=== PATIENT | male | born 1955 | race Caucasian/White ===

== ENCOUNTER 2017-11-20 11:16 | Outpatient (CLI) | payer OTHER ==
--- NOTE | 2017-11-20 12:10 | RAD ---
LUMBAR SPINE 3 VIEWS: Date: 11/20/17 HISTORY: Low back pain. FINDINGS: No comparison. There are six lumbar-type vertebra, so great care must be taken when assigning numbering on cross-sec tional imaging. For the purposes of this exam, the superiormost lumbar-type vertebra will be designat ed as T12. Pedicles are intact. There is mild left convex rotatory scoliotic curvature. Compression of the T12 v ertebral body results in loss of height anteriorly by approximately 40%. There is gas within the ante rior aspect of the compressed vertebral body and very subtle sclerotic change. Mild retropulsion. Mild compression of the L2 superior end plate, at approximately 10%, appears chronic. There is osteop hytosis throughout the vertebral bodies and facets. IMPRESSION: 1. Prominent compression of T12 vertebral body with mild retropulsion. Favored to be acute. Please c onsider MRI for better characterization and evaluation of the central spinal canal. 2. Mild compression L2 superior end plate, favored to be chronic. POS: [facility]
== END 2017-11-20 11:17 | disposition home or self-care (01) ==
LOC: RAD-FRANK 11:16
PROVIDERS: ATTEND Nurse Practitioner Family
DX: M54.5 Low back pain (principal); G95.20 Unspecified cord compression
CPT/HCPCS: 72100

== ENCOUNTER 2017-12-10 07:59 | Outpatient (CLI) | payer OTHER ==
--- NOTE | 2017-12-10 08:24 | RAD ---
SUPINE ABDOMEN: History: Abdominal pain. FINDINGS: Bowel gas pattern unremarkable. Scattered stool and gas in the colon. Unremarkable small bowel gas. N o mass effect or abnormal calcification. Psoas margins are sharp. Osseous structures unremarkable. IMPRESSION: Unremarkable exam. POS: [facility]
== END 2017-12-10 08:00 | disposition home or self-care (01) ==
LOC: RAD-FRANK 07:59
PROVIDERS: ATTEND Nurse Practitioner Family
DX: K52.9 Noninfective gastroenteritis and colitis, unspecified (principal)
CPT/HCPCS: 74018

== ENCOUNTER 2018-11-01 11:04 | Inpatient (IN) | payer BC, OTHER ==
[2018-11-01 12:17] LABS: Hemoglobin 15.1 g/dL (14.0-18.0); Mean Corpuscular HGB CONC 35.3 g/dL (32.0-36.0); Mean Corpuscular Hemoglobin 30.5 pg (27.0-31.0); Mean Corpuscular Volume 86.3 fL (78.0-98.0); Platelet Count 150 thou/uL (130-400); RBC Distribution Width 12.1 % (11.5-14.5); Red Blood Cell (RBC) Count 4.94 mill/uL (4.70-6.10)
[2018-11-01 12:26] LABS: #Eosinphils 0.2 thou/uL (0.0-0.7); #Lymphocytes 0.6 thou/uL (1.20-3.40); #Monocytes 0.8 thou/uL (0.11-0.59); #Neutrophils 16.3 thou/uL (1.40-6.50); %Eosinophils 0.9 % (0.0-10.0); %Lymphocytes 3.5 % (21.0-51.0); %Monocytes 4.4 % (0.0-10.0); %Neutrophils 91.1 % (42.0-75.0); Band 16 % (5-11); Lymphocytes 3 % (21-51); MDiff Complete? YES; Monocytes 2 % (0-10); Neutrophil 78 % (42-75); Platelet Morphology Comment Appears Adequate; RBC Morphology Normal; Reactive Lymphocytes 1 % (0-10); White Blood Cell (WBC) Count 17.8 thou/uL (4.8-10.8)
[2018-11-01 12:27] LABS: ALT (SGPT) 24 U/L (8-55); AST (SGOT) 28 U/L (5-34); Albumin 4.2 g/dL (3.4-4.8); Alkaline Phosphatase 72 U/L (40-150); Anion Gap 19 mmol/L (10-20); BUN (Urea Nitrogen) 18 mg/dL (8.4-25.7); Calc. Creatinine Clearance 0 mL/min (70-130); Calcium 9.7 mg/dL (7.8-10.44); Carbon Dioxide 17 mmol/L (23-31); Chloride 108 mmol/L (98-107); Estimated GFR-MDRD 47; Globulin 2.4 g/dL (2.4-3.5); Glucose 139 mg/dL (80-115); Potassium 4.3 mmol/L (3.5-5.1); Protein, Total 6.6 g/dL (5.8-8.1); Sodium 140 mmol/L (136-145)
--- NOTE | 2018-11-01 13:36 | RAD ---
RIGHT ELBOW 4 VIEWS: DATE: 11/01/2018. COMPARISON: None. HISTORY: Fall, injury, trauma, pain. FINDINGS: Lateral examination demonstrates no elbow joint effusion. There is no displaced fracture or evidence of dislocation seen. IMPRESSION: No acute findings. POS: [facility]
--- NOTE | 2018-11-01 14:04 | CT ---
HEAD CT WITHOUT CONTRAST: HISTORY: Dementia. Fall. Posttraumatic pain. COMPARISON: 11/20/2012. FINDINGS: No parenchymal hemorrhage. No extraaxial hematoma. No midline shift. Basilar cisterns are patent. Age-appropriate atrophy. Cortical meek-white matter differentiation is preserved. Stable configuration of the ventricular system. Calvarium is intact. Adequate aeration of the sinuses and mastoid air cells. IMPRESSION: No intracranial posttraumatic sequelae. POS: [facility]
[2018-11-01 14:27] LABS: Bilirubin Small (Negative); Blood, Urine Negative (Negative); Clarity TURBID (Clear); Glucose, Urine (Dipstick) Negative (Negative); Leukocyte Negative (Negative); Nitrite Negative (Negative); Protein, Urine (Dipstick) 30 mg/dL (Neg-Trace); Specific Gravity, Urine 1.026 (1.002-1.036); pH, Urine 5.5 (5.0-9.0)
[2018-11-01 14:29] LABS: Bacteria/HPF None Seen HPF (None Seen); RBC/HPF 0-3 HPF (0-3); Squamous Epithelial 0-3 HPF (0-3); WBC/HPF 0-3 HPF (0-3)
[2018-11-01 14:30] LABS: Pathc Cast-AUWi Flag 2.61 (0-2.49)
--- NOTE | 2018-11-01 14:36 | CT ---
CERVICAL SPINE CT WITHOUT CONTRAST: DATE: 11/01/2018. HISTORY: Fall, trauma, pain. TECHNIQUE: Axial CT imaging at 2.5 mm intervals from the skull base through the lung apices with coronal and sag ittal reformatted imaging. FINDINGS: Imaged paranasal sinuses/mastoid air cells well aerated. Imaged lung apices unremarkable. There is moderate degenerative change of the atlantoaxial interspace. There is no anterolisthesis or retrolisthesis noted within the cervical spine. The craniocervical junction, the atlantoaxial inter space, and the cervicothoracic junction appears intact. There is no anterolisthesis or retrolisthesi s noted within the cervical spine. No prevertebral soft tissue swelling. There is mild anterior wedging of T1 with mild loss of vertebral body height anteriorly primarily aff ecting the superior end plate of the T1 vertebral body. The bones are demineralized, which limits detailed assessment for nondisplaced fracture. The occipital condyles, dens, and C1-2 articulation demonstrate no acute findings. No acute cervical spine fracture or evidence of dislocation is seen within the cervical spine. IMPRESSION: Mild anterior wedging of T1 vertebral body with irregularity of superior end plate suggesting age-ind eterminate anterior wedge compression fracture, better assessed on thoracic spine CT examination. POS: [facility]
[2018-11-01 14:43] LABS: Crystals/HPF 4+ AMORPH URATES HPF (Negative); Hyaline Casts/LPF 0-3 HYALINE CAST LPF (0-3 Hyaline); Other Casts/LPF None Seen LPF (0-3 Hyaline)
--- NOTE | 2018-11-01 14:43 | CT ---
THORACIC SPINE CT WITHOUT CONTRAST: HISTORY: Dementia. Fall. Posttraumatic pain. COMPARISON: None. TECHNIQUE: A CT of the thoracic spine is performed without contrast administration. Reformatted images are subm itted for interpretation. FINDINGS: There appears to be mild loss of vertebral body height along the superior end plate of T1, T2, and T3 . Axial images do suggest possible slight cortical irregularity on the anterior aspect of T1 and T2. Irregularities may also be present at T3, though is less evident. No paraspinal hematoma. Correla te clinically. If there is concern, MRI can be performed. There is diffuse bone demineralization. End plate irregularity due to Schmorl's nodes are noted. Calcification of the T7-T8 and T8-T9 disk i s noted. There is mild loss of vertebral body height in the mid portion of T10 which is felt to repr esent a remote Schmorl's node. A similar finding is noted at T11. There is vertebro plana at L1. Visualized mediastinal structures are unremarkable. Dependent atelectatic changes in the lung parenc hyma. Trachea and central bronchi are patent. Calcified bilateral hilar lymph nodes. Visualized solid organs are grossly unremarkable. Gallbladder is surgically absent. Central spinal canal is patent. Neural foramina appear to be patent. IMPRESSION: 1. Indeterminate mild compression deformities at T1, T2, and T3. Correlate clinically. If there is point tenderness, consider thoracic spine MRI. 2. Likely chronic end plate irregularities along the superior end plate of T10 and T11. 3. Vertebro plana at L1. POS: [facility]
--- NOTE | 2018-11-01 14:57 | CT ---
CT LUMBAR SPINE WITHUOT CONTRAST: HISTORY: Fall. Pain. COMPARISON: None. FINDINGS: Diffuse bone demineralization. Six lumbar-type vertebral bodies. Six lumbar-type vertebral bodies. Vertebroplana at L1. L2 through L5 have preservation of vertebral body height. There is irregulari ty involving the superior end plate of L6 with mild loss of vertebral body height. Fracture lucency does extend into the superior aspect of the vertebral body. There is no significant paraspinal hemat juan at this time. Symmetric attenuation of the psoas muscles. No retroperitoneal mass, lymphadenopa thy, or hematoma. Incompletely evaluated nodule involving the left adrenal gland measuring 1.3 cm wi th an attenuation coefficient of 11 Hounsfield units. No evidence of obstructive uropathy. Isodensi ties emanating from the left kidney, incompletely evaluated. Visualized sacrum and bony pelvis appear to be intact. Obvious sacral fax is not appreciated. Limited evaluation of the contents of the central spinal canal and neural foramina. No high-grade ce ntral canal stenosis. No high-grade neural foraminal narrowing. IMPRESSION: 1. Vertebroplana at L1 with an associated chronic fracture. 2. Acute mild compression fracture involving the L6 vertebral body. POS: [facility]
[2018-11-01] MEDS ORDERED: Lidocaine 1% w/Epinephrine 1:100K 20 ML VIAL ONE (15:32)
[2018-11-01] MEDS ORDERED: Azithromycin 500 MG VIAL ONE (15:47)
[2018-11-01] MEDS ORDERED: Sodium Chloride 0.9% 100 ML ONE (15:47)
[2018-11-01] MEDS ORDERED: cefTRIAXone\\ROCEPHIN 2 GM VIAL ONE (15:47)
[2018-11-01] MEDS ORDERED: Triple Antibiotic Oint 1 GM Packet ONE (16:03)
--- NOTE | 2018-11-01 16:46 | RAD ---
CHEST ONE VIEW: 11/01/18 HISTORY: Altered mental status. COMPARISON: None. FINDINGS: Multiple calcified lymph nodes project over the left and right hilum as well as the mediastinum. Norm al cardiac silhouette. Lung volumes are diminished likely due to poor inspiratory effort. Subsequent crowding of the interstitium and pulmonary vessels. No pleural effusions or pneumothorax. IMPRESSION: Diminished lung volumes due to poor inspiratory effort. Resultant interstitial and pulmonary vascular prominence. Better interrogation with two view chest radiograph would be beneficial. POS: [facility]
[2018-11-01] MEDS ORDERED: Ondansetron PF 4 MG/2 ML Vial IVP PRN (18:02)
[2018-11-01] MEDS ORDERED: Acetaminophen 500 MG TAB ONE (18:12)
[2018-11-01 18:31] LABS: Lactic Acid 3.1 mmol/L (0.5-2.2)
--- NOTE | 2018-11-01 19:28 | HP ---
PRIMARY CARE PROVIDER: UDAY Castaneda at [facility] in [place]. CHIEF COMPLAINT: Fall. HISTORY OF PRESENT ILLNESS: This is a 63-year-old male with history of moderate frontal lobe dementia, hypertension, and hypothyroidism, who presents to the emergency room by EMS after a fall this morning. All history was obtained from the patient's . She reports that he was finished in the bathroom, coming out, followed by a fall that was not witnessed. She denies any precipitants for this , noted that he was stiff after the fall, and it took approximately 30 to 40 minutes for him to come to. She denies any loss of consciousness; however, states that he was confused and different than his baseline. She also reports one episode of vomiting after the fall. She has noted that over the past week that he has been acting differently, talking to the TV, and becoming agitated, his appetite has been lower than usual and over the past 2 months, he has been more agitated easily. She has not noticed any fevers, chills, nausea, diarrhea, change in his breathing, coughing, or medication change. The patient has a history of fall a year ago, hospitalized at [facility] where he was diagnosed with and treated for colitis. He has a history of compression fracture associated with that fall. She denies any other recent falls. In the emergency room, the patient found to meet sepsis criteria, with a pneumonia, and he was given 2 L of normal saline, 500 mg of azithromycin IV, ceftriaxone 2 g IV, and laceration repair of his right elbow, and hospitalist called for admission. ALLERGIES: NO KNOWN DRUG ALLERGIES. MEDICATIONS: Current medications are reconciled with the bottles as well as a list from his . 1. Quetiapine 50 mg at bedtime. 2. Potassium chloride 20 mEq daily. 3. Multivitamin daily. 4. Coenzyme Q10, 100 mg daily. 5. Amlodipine 10 mg daily. 6. Hydrochlorothiazide 25 mg one-half tablet daily. 7. Synthroid 50 mcg daily. 8. Aspirin 81 mg daily. 9. Losartan 100 mg daily. 10. Memantine 10 mg b.i.d. 11. Donepezil 10 mg b.i.d. PAST MEDICAL HISTORY: 1. Hypothyroidism. 2. Moderate frontal lobe dementia followed by Dr. Brown in [place]. 3. Hypertension. PAST SURGICAL HISTORY: Cholecystectomy. SOCIAL HISTORY: The patient is . His is his medical power of bagman/woman. Her name is Julieta Carrasquillo, phone #[phone], and she confirms he is a full code. There is no alcohol or tobacco use. FAMILY HISTORY: Significant for 4 brothers who had heart disease and 3 sisters who had cancer. The patient is 1 of 10 children. REVIEW OF SYSTEMS: Not obtainable from the patient and per the as above. She does note one episode of vomiting after the fall, none since then. All remaining review of systems per her are negative. PHYSICAL EXAMINATION: VITAL SIGNS: Blood pressure 112/84, pulse 84, respirations 18, saturation is 95 % on room air, and temperature 99. GENERAL: The patient is awake, easily agitated, no spontaneous speech, will answer some simple questions without difficulty. HEENT: His right tympanic membrane is translucent. His left external auditory canal was occluded with cerumen, and the tympanic membrane not visualized. Oral mucosa is pink and moist. The patient does have some bruising at the tip of his tongue. NECK: Supple. LYMPHATICS: No palpable anterior cervical or supraclavicular lymphadenopathy. LUNGS: Clear to auscultation bilateral. No audible wheezing, rhonchi, or rales. HEART: Normal S1, S2. Regular rate and rhythm. No audible murmurs. ABDOMEN: Soft with present bowel sounds. EXTREMITIES: No clubbing, cyanosis, or edema. NEUROLOGIC: Unable to adequately perform as the patient not following with exam. Occasional shaking of his right hand. SKIN: No visible rashes. VASCULAR: 2+ dorsalis pedis pulses. PSYCH: The patient intermittently agitated versus just lying quietly and alert , not oriented to place, time, or situation. LABORATORY DATA: Labs personally reviewed. CBC; 17.8, 15.1, 42.6, 150 with 91% neutrophils, 3% lymphocytes. Renal panel; 140, 4.3, 108, 17, 18, 1.49, and 139. Lactic acid 4.3. LFTs are normal. No comparison available for creatinine as no results in our system. Urinalysis; 1.026, present protein, ketones, and small bilirubin. Flu swab is negative. DIAGNOSTIC DATA: Chest x-ray is personally reviewed and shows diminished lung volumes due to poor inspiratory effort, resulting in interstitial and pulmonary vascular prominence with recommendation for 2-view x-ray. Elbow x-ray, no acute findings. C-spine x-ray, mild anterior wedging of the T1 vertebral body with irregularity of superior endplates suggesting age-indeterminate anterior wedge compression fracture. Head CT, no acute intracranial process. Lumbar spine CT vertebra plana at L1 with associated chronic fracture, acute mild compression fracture of the L6 vertebral body. Thoracic spine CT, indeterminate mild compression deformity at T1, T2, T3, likely chronic endplate irregularities along the superior endplate of T10, T11, and vertebra plana at L1. ECG - sinus rhythm with rate 90, normal ME and QRS intervals, QTc is 457, no ST changes. IMPRESSION: 1. Sepsis, possibly due to pneumonia. 2. Compression fractures, both acute and chronic. 3. Fall with concern for seizure given history. 4. Possible acute kidney injury, unknown baseline of the patient's renal function. This is in the context of fall and the patient taking an ARB and diuretic. 5. Moderate frontal lobe dementia. 6. Hypothyroidism, unknown control. 7. Hypertension, however, currently normotensive. 8. Prolonged QT interval. PLAN: 1. Admission to the hospital. 2. Continuing his antibiotics with Rocephin and azithromycin, monitoring his blood and urine cultures. Consider repeat chest x-ray as the patient is able to cooperate, recheck the lactate level. 3. IV fluid hydration. Monitoring renal function. If renal function is worsening, we will need to consider a renal ultrasound and possibly Nephrology consult. 4. Telemetry monitoring. We will check an EEG and request Neurology consultation for possible seizure. Hold on medications for this for now. Will order prn ativan, and seizure precautions. 5. Continuing his home medications for dementia. 6. Check a TSH and continue his current dose of Synthroid. 7. Hold his blood pressure medications, as his blood pressures become elevated, and if his renal function will allow for those that may affect for the hydrochlorothiazide and losartan. 8. We will continue his daily aspirin, hold his supplements. 9. Continue the TLSO brace and physical therapy. 10. Manage pain for now with Tylenol, may need to use stronger medications. Hold on anti-inflammatories due to his renal function. 11. Avoid any other medications that can prolong the QT interval, and follow here with daily ecg. 11. DVT prophylaxis with pneumatic compression devices. 12. GI prophylaxis, not indicated. The patient will be written for a diet. 13. Code status is full. Surrogate decision maker is his . 14. The patient is at high risk given age, comorbidities, and current presentation. 15. Reviewed the plan of care with the patient's and his son. No questions or further needs at end of evaluation. Job ID: [id number] [facility]
[2018-11-01] MEDS: Sodium Chloride 0.9% 1,000 ML IV SCH (19:58)
[2018-11-01] MEDS ORDERED: Clopidogrel Bisulfate 75 MG TAB ONE (20:09)
[2018-11-01] MEDS ORDERED: Lorazepam 2 MG/ML VIAL SLOW IVP PRN (20:48)
[2018-11-01] MEDS: Donepezil HCl 10 MG TAB PO SCH (20:53)
[2018-11-02] MEDS: Levothyroxine Sodium 50 MCG TAB PO SCH (05:40)
[2018-11-02] MEDS: Sodium Chloride 0.9% 1,000 ML IV SCH ×2 (05:44→15:45)
[2018-11-02 07:18] LABS: Anion Gap 14 mmol/L (10-20); BUN (Urea Nitrogen) 14 mg/dL (8.4-25.7); Calc. Creatinine Clearance 75 mL/min (70-130); Calcium 8.6 mg/dL (7.8-10.44); Carbon Dioxide 19 mmol/L (23-31); Chloride 111 mmol/L (98-107); Estimated GFR-MDRD 54; Glucose 107 mg/dL (80-115); Potassium 3.8 mmol/L (3.5-5.1); Sodium 140 mmol/L (136-145)
[2018-11-02] MEDS: Donepezil HCl 10 MG TAB PO SCH ×2 (09:01→20:26)
[2018-11-02] MEDS: Aspirin 81 mg Enteric Coated Tablet PO SCH (09:01)
[2018-11-02 09:43] LABS: #Lymphocytes 0.4 thou/uL (1.20-3.40); #Monocytes 0.2 thou/uL (0.11-0.59); #Neutrophils 6.8 thou/uL (1.40-6.50); %Eosinophils 0.6 % (0.0-10.0); %Lymphocytes 5.2 % (21.0-51.0); %Monocytes 2.8 % (0.0-10.0); %Neutrophils 91.5 % (42.0-75.0); Hemoglobin 13.3 g/dL (14.0-18.0); Mean Corpuscular HGB CONC 34.5 g/dL (32.0-36.0); Mean Corpuscular Hemoglobin 30.5 pg (27.0-31.0); Mean Corpuscular Volume 88.5 fL (78.0-98.0); Mean Platelet Volume 7.1 fL (7.4-10.4); Platelet Count 127 thou/uL (130-400); RBC Distribution Width 11.9 % (11.5-14.5); Red Blood Cell (RBC) Count 4.36 mill/uL (4.70-6.10); White Blood Cell (WBC) Count 7.4 thou/uL (4.8-10.8)
[2018-11-02] MEDS: Acetaminophen 500 MG TAB PO PRN ×2 (12:07→20:26)
--- NOTE | 2018-11-02 14:11 | CON ---
DATE OF TELEMEDICINE CONSULTATION: 11/02/2018 CHIEF COMPLAINT: Seizure. HISTORY OF PRESENT ILLNESS: The patient's family was in the room and daughter and son gave the medical history plus another relative. The patient's was out of the room and I gave them my phone number, so can call me. The patient apparently was with his in getting dressed when he fell and hurt his back. He was awake through the episode, but had jerky movements of both arms and legs. He had another seizure like event a year ago in November when he had colitis. At baseline, he has frontotemporal dementia and he has seen Dr. Brown in [place]. There is no loss of consciousness or weakness associated with this event. He did not have anymore events between last November and this time. He is currently admitted with possible seizure and urinary infection. PREVIOUS MEDICAL HISTORY: The patient has dementia, hypertension, and thyroid dysfunction and has a neurologist followup. He also has previous history of colitis. Previous medical history as stated, positive for hypothyroidism, moderate frontal lobe dementia, hypertension. PREVIOUS SURGICAL HISTORY: Cholecystectomy. ALLERGIES: NO KNOWN DRUG ALLERGIES. CURRENT MEDICATIONS: He takes: 1. Quetiapine. 2. Potassium chloride. 3. Multivitamin. 4. Coenzyme Q10. 5. Amlodipine. 6. Hydrochlorothiazide. 7. Synthroid. 8. Aspirin. 9. Losartan. 10. Memantine. 11. Donepezil. 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 No alcohol or tobacco use. FAMILY HISTORY: Positive for dementia in his father. REVIEW OF SYSTEMS: Unable to obtain from patient due to his mental status. LABORATORY WORKUP: His white count 7.4, hemoglobin 13.3, hematocrit 38.6, platelet count 127. Sodium 140, potassium 3.8, chloride 111, bicarb 19, BUN 14, creatinine 1.33. Lactic acid 3.1. TSH 1.15. Urinalysis is abnormal with high protein, trace ketones, small bilirubin, and amorphous urate and hyaline casts. Negative leukocyte esterase. He also had a CT scan which showed no evidence of hemorrhage. He does have chronic meek white matter changes. PHYSICAL EXAMINATION: VITAL SIGNS: His blood pressure was 144/72, temperature 99.7, pulse 83, respiratory rate 16. GENERAL APPEARANCE: Well-built, well-nourished man, who is in bed, seems to be quite demented, unable to follow commands. His speech is garbled. CHEST: Coarse breath sounds and decreased breath sounds at bases. He seems to be coughing, likely secondary to sinus drainage. ABDOMEN: Soft. CARDIOVASCULAR: S1, S2 heard. No murmurs. NEUROLOGIC: Higher intellectual function. He tries to obey some commands, but unable to interact meaningfully. His cranial nerve examination, no facial asymmetry. Normal extraocular movements. Pupils are reactive at 2 mm bilaterally. Tongue midline. No atrophy noted. Normal elevation of palate. Extraocular movements are intact. Motor exam, bulk normal. Based on gross motor evaluation , he seems to have strength of 5/5 on the left side and 4/5 on the right side. Cerebellar and sensory; difficult to evaluate due to his mental status. IMPRESSION: The patient is a 63-year-old man with a pre-existing dementia. He seems to have urinary infection. At this time, he is admitted with possible episode of seizure or seizure-like event with a tonic-clonic jerking of extremities with mild alteration of mental status, but no loss of consciousness or incontinence. At this time, his spell seems to be altered, although he is trying to obey commands. He seems to have mild right-sided weakness compared to the left side. I suspect he might have had an underlying new acute stroke in addition to his possible seizures. He is likely prone to seizures due to presence of dementia. RECOMMENDATIONS: I requested an MRI of the brain. I gave my phone number to the family, so can contact me at her leisure. I will also add Keppra to his medications to prevent any future seizures. He can follow up with his neurologist once he is discharged. ADDENDUM: I spoke to his who called me later. She updated medical history for me and I explained the plan of treatment to her. She verbalized understanding, and will contact me if she has any further questions. Job ID: [id number] [facility]
--- NOTE | 2018-11-02 15:19 | PDOC.PN ---
- Subjective Encounter Start Date: 11/02/18 Encounter Start Time: 14:55 Subjective: f/u for AMS, ?seizure-like activity and PNA. Still confused but more -: alert and responsive per 's report. Receiving IV abx and Keppra. - Objective Resuscitation Status - Order Detail: 11/01/18 18:02 Resuscitation Status Routine Resuscitation Status: FULL: Full Resuscitation Discussed with: patient's - medical decision maker MAR Reviewed: Yes Vital Signs & Weight: Vital Signs (12 hours) Temp Pulse Resp BP Pulse Ox 11/02/18 12:50 100.3 F H 80 21 H 136/88 100 11/02/18 09:09 99.7 F H 83 16 144/72 H 99 11/02/18 08:00 99 11/02/18 03:55 98.3 F 84 16 137/69 95 Weight Weight 208 lb I&O: 11/01/18 11/02/18 11/03/18 06:59 06:59 06:59 Intake Total 1140 Balance 1140 Result Diagrams: 11/02/18 09:22 11/02/18 06:22 Additional Labs: Microbiology 11/01/18 15:10 Nasopharyngeal swab Influenza Types A,B Direct EIA - Final 11/01/18 15:47 Venous blood - Left Hand Blood Culture - Preliminary Coagulase Neg Staphylococcus 11/01/18 15:41 Venous blood - Right Hand Blood Culture - Preliminary Specimen has been received and culture in progress. No Growth to date. 11/01/18 14:10 Urine Straight Catheter Urine Culture - Preliminary NO GROWTH AT 12 HOURS Laboratory Tests 11/01/18 11/01/18 11/01/18 11:33 11:33 15:47 WBC 17.8 H Creatinine 1.49 H Lactic Acid 4.3 H* TSH 3rd Generation 11/01/18 11/02/18 17:33 06:22 WBC Creatinine Lactic Acid 3.1 H TSH 3rd Generation 1.1511 Radiology Reviewed by me: Yes (MRI brain - no acute process) EKG Reviewed by me: Yes (Tele - SR in 80's) Phys Exam - Physical Examination alert, responds to questions, mumbled words/speech HEENT: PERRLA, sclera anicteric, oral pharynx no lesions Neck: no nodes, no JVD, supple, full ROM Respiratory: no wheezing, no rales, no rhonchi, clear to auscultation bilateral S1, S2 Cardiovascular: RRR, no significant murmur, no rub, gallop Gastrointestinal: soft, non-tender, no distention, positive bowel sounds Musculoskeletal: no edema, pulses present intermittent resting tremor Neurological: normal sensation, moves all 4 limbs Skin: normal turgor, cap refill <2 seconds Dx/Plan (1) Seizure Code(s): R56.9 - UNSPECIFIED CONVULSIONS Status: Acute Comment: Suspected given hx and clinical presentation, initiating Keppra, Neurology assistance appreciated, ? outpt EEG (2) Acute metabolic encephalopathy Code(s): G93.41 - METABOLIC ENCEPHALOPATHY Status: Acute Comment: Multifactorial including PNA, dehydration and ? seizure, supportive mgmt (3) Pneumonia, bacterial Code(s): J15.9 - UNSPECIFIED BACTERIAL PNEUMONIA Status: Acute Comment: Suspected, continue Zithromax/Rocephin, pulmonary supportive measures (4) KEVIN (acute kidney injury) Code(s): N17.9 - ACUTE KIDNEY FAILURE, UNSPECIFIED Status: Acute Comment: Improved, continue IVF's, avoid nephrotoxic meds and limit contrast exposure (5) Lactic acidosis Code(s): E87.2 - ACIDOSIS Status: Acute (6) Dementia Code(s): F03.90 - UNSPECIFIED DEMENTIA WITHOUT BEHAVIORAL DISTURBANCE Status: Chronic Comment: ? type, continue supportive care, resume Namenda/Aricept - Plan plan discussed w/ family, continue antibiotics, PT/OT, building services supervisor, respiratory therapy, DVT proph w/SCDs Stable currently -: Continue Zithromax/Rocephin another 24h -: Continue IVF's -: Resume Namenda/Aricept -: PT evaluation for functional assessment * AM lab: BMP, CBC
[2018-11-02] MEDS: cefTRIAXone\\ROCEPHIN 1 GM in Sodium Chloride 0.9% 100 ML IVPB SCH (15:45)
--- NOTE | 2018-11-02 16:02 | MRI ---
MRI BRAIN WITHOUT CONTRAST: HISTORY: Seizure. COMPARISON: None. TECHNIQUE: Brain MRI is performed without intravenous Gadolinium administration. Multisequential, multiplanar i maging is performed. FINDINGS: Limited evaluation due to motion degradation on multiple sequences. No definite evidence of parenchymal hemorrhage or extraaxial hematoma. No midline shift. Basilar ci sterns are patent. Age-appropriate atrophy. Grossly, cortical meek-white matter differentiation is preserved. Calvarium has a normal marrow signal intensity. Midline brain parenchymal structures are unremarkabl e. Central arterial flow voids are maintained. Absent restricted diffusion. On the coronal T2 weighted images, grossly symmetric hippocampi. IMPRESSION: 1. Limited evaluation due to motion. 2. Absent restricted diffusion. 3. Age-appropriate atrophy. POS: [facility]
[2018-11-02] MEDS: Azithromycin 500 MG in Sodium Chloride 0.9% 250 ML 250 ML IVPB SCH (16:20)
[2018-11-02] MEDS ORDERED: Donepezil HCl 10 MG TAB PO SCH (21:00)
[2018-11-02] MEDS ORDERED: Non-Formulary Item 1 EACH (Quetiapine Fumarate [Seroquel] 50 MG) PO SCH (21:00)
[2018-11-03] MEDS: Levothyroxine Sodium 50 MCG TAB PO SCH (05:13)
[2018-11-03] MEDS: Sodium Chloride 0.9% 1,000 ML IV SCH ×4 (05:14→18:17)
[2018-11-03 06:47] LABS: Calc. Creatinine Clearance 76 mL/min (70-130); Estimated GFR-MDRD 59
[2018-11-03 06:48] LABS: BUN (Urea Nitrogen) 11 mg/dL (8.4-25.7)
[2018-11-03 07:03] LABS: Calcium 8.3 mg/dL (7.8-10.44); Chloride 113 mmol/L (98-107); Potassium 3.4 mmol/L (3.5-5.1); Sodium 143 mmol/L (136-145)
[2018-11-03 08:09] LABS: Band 6 % (5-11); Eosinophils 4 % (0-10); Hemoglobin 11.3 g/dL (14.0-18.0); Lymphocytes 10 % (21-51); MDiff Complete? YES; Mean Corpuscular Hemoglobin 31.5 pg (27.0-31.0); Mean Corpuscular Volume 87.5 fL (78.0-98.0); Mean Platelet Volume 7.3 fL (7.4-10.4); Metamyelocyte 1 % (0-0); Monocytes 2 % (0-10); Neutrophil 77 % (42-75); Ovalocytes SLIGHT = 2-5 cells (100X) (0-1/hpf); Platelet Count 92 thou/uL (130-400); Platelet Morphology Comment Appears Decreased; Polychromasia SLIGHT = 2-3 cells (100X) (0-2/hpf); RBC Distribution Width 11.9 % (11.5-14.5); Red Blood Cell (RBC) Count 3.57 mill/uL (4.70-6.10); Small Platelets SLIGHT; White Blood Cell (WBC) Count 4.1 thou/uL (4.8-10.8)
[2018-11-03 08:34] LABS: Glucose 87 mg/dL (80-115)
[2018-11-03 08:35] LABS: Carbon Dioxide 20 mmol/L (23-31)
[2018-11-03] MEDS ORDERED: Aspirin 81 mg Enteric Coated Tablet PO SCH (09:00)
[2018-11-03] MEDS: Amlodipine 10 MG TAB PO SCH (10:37)
[2018-11-03] MEDS: Aspirin 81 mg Enteric Coated Tablet PO SCH (10:38)
[2018-11-03] MEDS: Donepezil HCl 10 MG TAB PO SCH ×2 (10:39→20:51)
[2018-11-03] MEDS: Potassium Chloride 20 MEQ TAB PO SCH (10:39)
[2018-11-03] MEDS: Acetaminophen 500 MG TAB PO PRN ×2 (10:40→17:07)
[2018-11-03] MEDS: Ubidecarenone 50 MG CAP PO SCH (10:40)
[2018-11-03 10:44] LABS: Anion Gap 13 mmol/L (10-20)
[2018-11-03] MEDS: cefTRIAXone\\ROCEPHIN 1 GM in Sodium Chloride 0.9% 100 ML IVPB SCH (16:25)
[2018-11-03] MEDS: Azithromycin 500 MG in Sodium Chloride 0.9% 250 ML 250 ML IVPB SCH (17:06)
--- NOTE | 2018-11-03 17:38 | PDOC.PN ---
- Subjective Encounter Start Date: 11/03/18 Encounter Start Time: 17:30 Subjective: f/u for AMS, encephalopathy, dementia and presumed seizure activity. -: Still confused, gets agitated and c/o back pain when standing with PT -: today. Eating small amounts. - Objective Resuscitation Status - Order Detail: 11/01/18 18:02 Resuscitation Status Routine Resuscitation Status: FULL: Full Resuscitation Discussed with: patient's - medical decision maker MAR Reviewed: Yes Vital Signs & Weight: Vital Signs (12 hours) Temp Pulse Pulse Pulse Resp BP BP 11/03/18 15:55 98.7 F 75 16 11/03/18 13:10 67 69 116/76 132/75 11/03/18 11:50 99 F 62 18 11/03/18 07:50 97.6 F 64 18 BP Pulse Ox 11/03/18 15:55 155/83 H 95 11/03/18 13:10 11/03/18 11:50 123/72 93 L 11/03/18 07:50 129/71 94 L Weight Admit Weight 208 lb 5 oz Weight 195 lb 4 oz I&O: 11/02/18 11/03/18 11/04/18 06:59 06:59 06:59 Intake Total 1140 3370 Output Total 100 Balance 1140 3270 Result Diagrams: 11/03/18 06:23 11/03/18 06:23 Additional Labs: Microbiology 11/01/18 15:10 Nasopharyngeal swab Influenza Types A,B Direct EIA - Final 11/01/18 15:47 Venous blood - Left Hand Blood Culture - Preliminary Coagulase Neg Staphylococcus 11/01/18 15:41 Venous blood - Right Hand Blood Culture - Preliminary Specimen has been received and culture in progress. No Growth to date. 11/01/18 14:10 Urine Straight Catheter Urine Culture - Preliminary NO GROWTH AT 12 HOURS Laboratory Tests 11/01/18 11/01/18 11/01/18 11:33 11:33 15:47 WBC 17.8 H Creatinine 1.49 H Lactic Acid 4.3 H* TSH 3rd Generation 11/01/18 11/02/18 17:33 06:22 WBC Creatinine Lactic Acid 3.1 H TSH 3rd Generation 1.1511 EKG Reviewed by me: Yes (Tele - SR) Phys Exam - Physical Examination alert, mumbles, stutters HEENT: PERRLA, sclera anicteric, oral pharynx no lesions Neck: no nodes, no JVD, supple, full ROM Respiratory: no wheezing, no rales, no rhonchi, clear to auscultation bilateral S1, S2 Cardiovascular: RRR, no significant murmur, no rub, gallop Gastrointestinal: soft, non-tender, no distention, positive bowel sounds Musculoskeletal: no edema, pulses present Neurological: normal sensation, moves all 4 limbs A x O x 1 Skin: normal turgor, cap refill <2 seconds Dx/Plan (1) Seizure Code(s): R56.9 - UNSPECIFIED CONVULSIONS Status: Acute Comment: Suspected given hx and clinical presentation, initiating Keppra, Neurology assistance appreciated, ? outpt EEG (2) Acute metabolic encephalopathy Code(s): G93.41 - METABOLIC ENCEPHALOPATHY Status: Acute Comment: Multifactorial including PNA, dehydration and ? seizure, supportive mgmt, persistent (3) Pneumonia, bacterial Code(s): J15.9 - UNSPECIFIED BACTERIAL PNEUMONIA Status: Acute Comment: Suspected, continue Zithromax/Rocephin, pulmonary supportive measures (4) KEVIN (acute kidney injury) Code(s): N17.9 - ACUTE KIDNEY FAILURE, UNSPECIFIED Status: Acute Comment: Improved, continue IVF's, avoid nephrotoxic meds and limit contrast exposure (5) Lactic acidosis Code(s): E87.2 - ACIDOSIS Status: Acute Comment: Resolving (6) Dementia Code(s): F03.90 - UNSPECIFIED DEMENTIA WITHOUT BEHAVIORAL DISTURBANCE Status: Chronic Comment: ? type, continue supportive care, resume Namenda/Aricept - Plan plan discussed w/ family, continue antibiotics, PT/OT, social services specialist, speech therapy, DVT proph w/SCDs Stable currently -: Decrease IVF's 75ml/h -: Start Megace 80mg BID, Ensure -: Rehab evaluation/screening -: Add Toradol 30mg IV q6h prn * AM lab: Mg++, PO3, Ammonia, CBC
[2018-11-03] MEDS: Megestrol Acetate 40 MG TAB PO SCH (20:51)
[2018-11-03] MEDS: Ketorolac Tromethamine 30 MG/ML VIAL IVP PRN (21:06)
[2018-11-04 04:45] LABS: Anion Gap 10 mmol/L (10-20); BUN (Urea Nitrogen) 8 mg/dL (8.4-25.7); Calc. Creatinine Clearance 97 mL/min (70-130); Calcium 8.4 mg/dL (7.8-10.44); Carbon Dioxide 23 mmol/L (23-31); Chloride 111 mmol/L (98-107); Estimated GFR-MDRD 79; Glucose 89 mg/dL (80-115); Magnesium 1.8 mg/dL (1.6-2.6); Phosphorus 3.4 mg/dL (2.3-4.7); Potassium 3.3 mmol/L (3.5-5.1); Sodium 141 mmol/L (136-145)
[2018-11-04 05:06] LABS: Band 2 % (5-11); Hemoglobin 12.1 g/dL (14.0-18.0); Hypochromia SLIGHT = 6-15 cells (100X) (0-5/hpf); Lymphocytes 28 % (21-51); MDiff Complete? YES; Mean Corpuscular HGB CONC 34.6 g/dL (32.0-36.0); Mean Corpuscular Hemoglobin 30.7 pg (27.0-31.0); Mean Corpuscular Volume 88.7 fL (78.0-98.0); Mean Platelet Volume 7.1 fL (7.4-10.4); Monocytes 2 % (0-10); Neutrophil 68 % (42-75); Platelet Count 110 thou/uL (130-400); Platelet Morphology Comment Appears Adequate; RBC Distribution Width 11.7 % (11.5-14.5); Red Blood Cell (RBC) Count 3.95 mill/uL (4.70-6.10); White Blood Cell (WBC) Count 4.3 thou/uL (4.8-10.8)
[2018-11-04] MEDS: Levothyroxine Sodium 50 MCG TAB PO SCH (05:49)
[2018-11-04] MEDS: Sodium Chloride 0.9% 1,000 ML IV SCH (05:49)
[2018-11-04] MEDS: Ketorolac Tromethamine 30 MG/ML VIAL IVP PRN ×2 (06:02→17:40)
[2018-11-04] MEDS: Aspirin 81 mg Enteric Coated Tablet PO SCH (09:06)
[2018-11-04] MEDS: Donepezil HCl 10 MG TAB PO SCH ×2 (09:06→21:21)
[2018-11-04] MEDS: Amlodipine 10 MG TAB PO SCH (09:06)
[2018-11-04] MEDS: Ubidecarenone 50 MG CAP PO SCH (09:07)
[2018-11-04] MEDS: Potassium Chloride 20 MEQ TAB PO SCH (09:07)
[2018-11-04] MEDS: Megestrol Acetate 40 MG TAB PO SCH ×2 (09:08→21:20)
--- NOTE | 2018-11-04 11:47 | PQF ---
MARICRUZ BENTLEYGEORGE DO [id number] CLINICAL DOCUMENTATION IMPROVEMENT CLARIFICATION FORM: ICD-10 Updated PLEASE DO AN ADDENDUM TO THE PROGRESS NOTE WITH ANY DOCUMENTATION UPDATES OR ADDITIONS AND CARRY THROUGH TO DC SUMMARY. THANK YOU. DATE: 11/04/18,11/05 ATTN : DR. BOWEN Please exercise your independent, professional judgment in responding to the clarification form. Clinical indicators are provided on the bottom of this form for your review. Please check appropriate box(s) to clarify if the following diagnosis has been ruled in or ruled out: Sepsis [ ] Ruled in diagnosis [ ] Continue to treat [ ] Resolved [ x ] Ruled out diagnosis [ ] Other diagnosis [ ] Unable to determine In addition, please specify: Present on Admission (POA): [ ] Yes [ x ] No [ ] Unable to determine For continuity of documentation, please document condition throughout progress notes and discharge summary. Thank You. CLINICAL INDICATORS - SIGNS / SYMPTOMS / LABS 11/01 ER PHYSICIAN DX: SEPSIS, ATYPICAL PNEUMONIA 11/01 H & P (JOSHUA) : IMPRESSION 1) SEPSIS, POSSIBLE D/T PNEUMONIA 11/02/, 11/03 PN (ANDRÉS) : BACTERIAL PNEUMONIA - SUSPECTED NO FURTHER MENTION OF SEPSIS TO DATE WBC 17.8, ON ADMIT 11/01 LACTIC ACID 4.3, 3.1 ON ADMIT 11/01 RISK SUSPECTED PNEUMONIA KEVIN ACUTE METABOLIC ENCEPHALOPATHY TREATMENTS: IV ROCEPHIN AND ZITHROMAX ( 11/01 - PRESENT) NS IV ( 11/01- PRESENT) THANK YOU! SINA (This form is maintained as a part of the permanent medical record) 2014 [employer]. All Rights Reserved JEWELS [email or web address] [phone] MTDD
[2018-11-04] MEDS: cefTRIAXone\\ROCEPHIN 1 GM in Sodium Chloride 0.9% 100 ML IVPB SCH (16:56)
[2018-11-04] MEDS: Azithromycin 500 MG in Sodium Chloride 0.9% 250 ML 250 ML IVPB SCH (17:41)
--- NOTE | 2018-11-04 18:01 | PDOC.PN ---
- Subjective Encounter Start Date: 11/04/18 Encounter Start Time: 16:15 Subjective: f/u for AMS, encephalopathy and advanced dementia. Family states -: pt still disoriented, confused. Sat EOB today. Tolerated small volume -: Ensure. - Objective Resuscitation Status - Order Detail: 11/01/18 18:02 Resuscitation Status Routine Resuscitation Status: FULL: Full Resuscitation Discussed with: patient's - medical decision maker MAR Reviewed: Yes Vital Signs & Weight: Vital Signs (12 hours) Temp Pulse Resp BP Pulse Ox 11/04/18 16:55 98.8 F 70 18 138/89 94 L 11/04/18 12:40 97.5 F L 77 18 126/84 97 11/04/18 09:06 68 11/04/18 08:59 97.7 F 68 18 138/77 95 Weight Admit Weight 208 lb 5 oz Weight 216 lb 4.8 oz I&O: 11/03/18 11/04/18 11/05/18 06:59 06:59 06:59 Intake Total 3370 2954 Output Total 100 550 Balance 3270 2404 Result Diagrams: 11/04/18 04:15 11/04/18 04:15 Additional Labs: Microbiology 11/01/18 15:10 Nasopharyngeal swab Influenza Types A,B Direct EIA - Final 11/01/18 15:47 Venous blood - Left Hand Blood Culture - Preliminary Coagulase Neg Staphylococcus 11/01/18 15:41 Venous blood - Right Hand Blood Culture - Preliminary Specimen has been received and culture in progress. No Growth to date. 11/01/18 14:10 Urine Straight Catheter Urine Culture - Preliminary NO GROWTH AT 12 HOURS Laboratory Tests 11/01/18 11/01/18 11/01/18 11:33 11:33 15:47 WBC 17.8 H Creatinine 1.49 H Lactic Acid 4.3 H* TSH 3rd Generation 11/01/18 11/02/18 17:33 06:22 WBC Creatinine Lactic Acid 3.1 H TSH 3rd Generation 1.1511 Radiology Reviewed by me: Yes (Echo - EF 55-60%) EKG Reviewed by me: Yes (Tele - SR) Phys Exam - Physical Examination Constitutional: NAD tracks briefly with eyes, mumbles HEENT: PERRLA, sclera anicteric, oral pharynx no lesions Neck: no nodes, no JVD, supple, full ROM Respiratory: no wheezing, no rales, no rhonchi, clear to auscultation bilateral S1, S2 Cardiovascular: RRR, no significant murmur, no rub, gallop Gastrointestinal: soft, non-tender, no distention, positive bowel sounds Musculoskeletal: no edema, pulses present Neurological: normal sensation, moves all 4 limbs A x O x 1 Skin: normal turgor, cap refill <2 seconds Dx/Plan (1) Seizure Code(s): R56.9 - UNSPECIFIED CONVULSIONS Status: Acute Comment: Suspected given hx and clinical presentation, initiating Keppra, Neurology assistance appreciated, EEG pending (2) Acute metabolic encephalopathy Code(s): G93.41 - METABOLIC ENCEPHALOPATHY Status: Acute Comment: Multifactorial including PNA, dehydration and ? seizure, supportive mgmt, persistent (3) Pneumonia, bacterial Code(s): J15.9 - UNSPECIFIED BACTERIAL PNEUMONIA Status: Acute Comment: Suspected, continue Zithromax/Rocephin, pulmonary supportive measures (4) KEVIN (acute kidney injury) Code(s): N17.9 - ACUTE KIDNEY FAILURE, UNSPECIFIED Status: Acute Comment: Improved, continue IVF's, avoid nephrotoxic meds and limit contrast exposure (5) Lactic acidosis Code(s): E87.2 - ACIDOSIS Status: Acute Comment: Resolving (6) Dementia Code(s): F03.90 - UNSPECIFIED DEMENTIA WITHOUT BEHAVIORAL DISTURBANCE Status: Chronic Comment: ? type, continue supportive care, resume Namenda/Aricept, worsening - Plan plan discussed w/ family, continue antibiotics, PT/OT, social science research assistant, speech therapy, respiratory therapy, DVT proph w/SCDs Stable currently -: Continue Zithromax/Rocephin -: Continue Megace 80mg BID -: OOB/PT for mobilization -: SNF/Rehab options * EEG pending * Re-consult Neurology for any further recommendations
--- NOTE | 2018-11-04 20:12 | CON ---
DATE OF CONSULTATION: HISTORY OF PRESENT ILLNESS: The patient is a pleasant 63-year-old gentleman, who had a fall and apparent seizure activity. The patient has a history of dementia. He apparently had an episode previously, where he started shaking and was treated for colitis. He did not apparently lose consciousness. The patient had another episode yesterday, where he suddenly was shaking. He lost control of bladder or bowels and nearly lost consciousness. The patient denies having any chest discomfort. PAST MEDICAL HISTORY: 1. Hypothyroidism. 2. Dementia. PAST SURGICAL HISTORY: Cholecystectomy SOCIAL HISTORY: Nonsmoker. FAMILY HISTORY: There is a positive family history of coronary artery disease. MEDICATIONS: See nursing list. ALLERGIES: NO KNOWN DRUG ALLERGIES. REVIEW OF SYSTEMS: Not easily obtainable due to dementia. PHYSICAL EXAMINATION: GENERAL: Elderly gentleman, in no acute distress. VITAL SIGNS: Blood pressure 126/84. NECK: Showed no jugular venous distention. LUNGS: Clear to auscultation. HEART: Regular rate and rhythm. Normal S1 and S2. No murmurs. ABDOMEN: Nondistended. EXTREMITIES: Showed no edema. VASCULAR: Radial pulses are 2+. LABORATORY DATA: White blood cell count 4.3, hemoglobin 12.1, hematocrit 35.0, platelets are 110. His sodium was 141, potassium 3.3, chloride 111, bicarb 23, BUN 8, and creatinine is 0.96. DIAGNOSTIC DATA: His EKG revealed him to have normal sinus rhythm, normal ECG. Telemetry monitoring revealed marked bradycardia with prolonged pauses up to 3.7 seconds and short runs of atrial fibrillation. IMPRESSION: 1. Sick sinus syndrome. 2. Possible seizure disorder. 3. Dementia. 4. Hypertension. This gentleman presents with possible seizure. He has evidence of sick sinus syndrome. We will check an echo to evaluate his left ventricular function. We will obtain an EP consultation for possible pacemaker placement. We will follow this patient with you through his hospitalization. Job ID: [id number] [facility]
--- NOTE | 2018-11-05 00:06 | CON ---
DATE OF CONSULTATION: 11/04/2018 CONSULTING PHYSICIAN: Hospitalist Service. IMPRESSION: 1. Seizures. 2. Alzheimer's dementia. PLAN: 1. Keppra 500 mg twice a day. 2. Follow up with his neurologist in [place]. HISTORY OF PRESENT ILLNESS: Mr. Carrasquillo is a 63-year-old man with a history of progressive cognitive decline over the last few years. He was witnessed to have a fall in the house and then tonic stiffening. There was some frothing at the mouth associated with it. It took him around 3 to 5 minutes to resolve. He was quite agitated and confused beyond his baseline after he awoke. He was brought into the hospital for evaluation. He apparently injured his back in the fall, resulting in compression fracture. He has been getting some pain medication to help address this. X-rays reveal an L1 chronic fracture and acute area fracture at L6. Since admission, he also got an MRI of the brain which had some technical difficulties due to his restlessness, but there was no focal abnormalities noted. His echocardiogram showed a normal ejection fraction of 55% to 60%. He had an EEG done, which showed unremarkable background without any epileptiform features. There is no past history of seizures. Laboratory studies were otherwise unremarkable as well. PAST HISTORY: Dementia, hypothyroidism. FAMILY HISTORY: Noncontributory. ALLERGIES: NONE. SOCIAL HISTORY: No tobacco or alcohol use. He is , lives at home under the care of his . MEDICATIONS: Medication list was reviewed. REVIEW OF SYSTEMS: Not obtainable due to his dementia. PHYSICAL EXAMINATION: GENERAL: He is a well-nourished gentleman, who is lying in bed in some distress. VITAL SIGNS: Blood pressure 138/89, pulse 70, respirations 18, temperature 98.8. HEENT: Pupils are equal and reactive. Conjunctivae clear. Oropharynx clear. Cranium, normocephalic and atraumatic. NECK: Supple. No lymphadenopathy noted. EXTREMITIES: No cyanosis or edema. NEUROLOGIC: He appears to be awake but was nonconversant, could not get him to follow any commands. He did track with visually. There was no facial asymmetry noted. He had symmetric tone in the extremities. He responded to touch symmetrically. No abnormal movements were seen. SUMMARY: Elderly gentleman with dementia and secondary seizures, not an uncommon complication from cortical dementia. I agree with the choice of Keppra. I advised his to monitor for any behavioral changes. They will follow up with their neurologist in [place]. Job ID: [id number]
[2018-11-05] MEDS: Levothyroxine Sodium 50 MCG TAB PO SCH (06:27)
[2018-11-05] MEDS: Ketorolac Tromethamine 30 MG/ML VIAL IVP PRN ×2 (06:30→15:42)
[2018-11-05] MEDS: Ubidecarenone 50 MG CAP PO SCH (09:01)
[2018-11-05] MEDS: Aspirin 81 mg Enteric Coated Tablet PO SCH (09:01)
[2018-11-05] MEDS: Potassium Chloride 20 MEQ TAB PO SCH (09:01)
[2018-11-05] MEDS: Donepezil HCl 10 MG TAB PO SCH ×2 (09:01→20:16)
[2018-11-05] MEDS: Amlodipine 10 MG TAB PO SCH (09:01)
[2018-11-05] MEDS: Megestrol Acetate 40 MG TAB PO SCH ×2 (09:02→20:16)
--- NOTE | 2018-11-05 09:34 | CON ---
DATE OF CONSULTATION: 11/04/2018 REASON FOR CONSULTATION: Possible syncope, sick sinus syndrome. HISTORY OF PRESENT ILLNESS: Mr. Carrasquillo is a pleasant 63-year-old gentleman, who was at home and had an episode of syncope and collapse versus just a fall. His is with him during this episode and denies that there is any loss of consciousness. He did lose control of bowel and bladder, which has happened one time nearly a year ago, at which point he had a seizure. With the episode 1 year ago, he was brought to the hospital and was diagnosed with colitis. After the episode the other day, he was again brought to the hospital and found to have pneumonia. On telemetry, he has been seen to have nighttime bradycardia with pauses up to 3.75 seconds. He does have a history of sleep apnea as well that was initially diagnosed as mild to moderate approximately 5 years ago and does not use CPAP at home. He has baseline of quite advanced dementia and is unable to provide his own history, which his is able to provide. REVIEW OF SYSTEMS: A 12-point review of systems is conducted, is negative to the best of our ability except that listed above in HPI. PAST MEDICAL HISTORY: 1. Hypothyroidism. 2. Dementia. 3. Obstructive sleep apnea, [id number], not treated with CPAP. 4. Possible seizure disorder. PAST SURGICAL HISTORY: Cholecystectomy. SOCIAL HISTORY: . Nonsmoker. Lives at home. FAMILY HISTORY: Positive for CAD. ALLERGIES: NO KNOWN DRUG ALLERGIES. HOME MEDICATIONS: Include: 1. CoQ10 of 100 mg p.o. daily. 2. Seroquel 50 mg p.o. at bedtime. 3. Klor-Con 20 mEq p.o. daily. 4. Multivitamin p.o. daily. 5. Memantine 1 tablet b.i.d. 6. Levothyroxine sodium 50 mcg daily. 7. Hydrochlorothiazide 1 tablet daily. 8. Donepezil 10 mg p.o. b.i.d. 9. Aspirin 81 mg daily. 10. Amlodipine 10 mg daily. PHYSICAL EXAMINATION: VITAL SIGNS: Temperature 97.4, pulse 62, respirations 20, oxygen is 94% on room air, and blood pressure 128/80. GENERAL: The patient is alert. He is oriented to name, place, and situation, and is a poor historian. He is in no apparent distress, resting comfortably in bed. His is at bedside. NECK: Supple without jugular venous distention. HEENT: His oral mucosa is moist and pink with adequate dentition. HEART: His heart rate is regularly regular without murmur, rub, or gallop with crisp S1 and S2. PMI is nondisplaced. ABDOMEN: Soft and nontender without palpable masses. Hepatojugular reflux is negative. NEUROLOGIC: Nonfocal, grossly intact. Does exhibit his baseline dementia. Gait was not assessed. DATABASE: Hematology was reviewed and reflects mild anemia, but otherwise unremarkable. Chemistry; potassium 3.3, creatinine 0.96. TSH 1.15. Telemetry and EKG reflect mostly sinus rhythm during the day during hours of sleep. There are bradycardic episodes seen and pauses up to 3.75 seconds, but also late which could correlate with respirations as well. QRS is narrow. No daytime bradycardia seen. While the patient has been awake, there is single episode of PAT that was approximately 7 seconds in duration. IMPRESSION: 1. Episode of syncope versus fall, more favorable for fall as there is no loss of consciousness. 2. Nighttime bradycardia, likely attributed to obstructive sleep apnea. 3. History of seizure disorder. 4. Severe dementia. 5. Paroxysmal atrial tachycardia. PLAN: The patient would benefit from continued monitoring with an implantable loop recorder to further monitor tachy or bradycardic episodes, especially in light of his possible syncope with substantial pauses. Also recommend that possible repeat of sleep study in treatment and that he would likely benefit from treatment with CPAP, which could help alleviate or eliminate his nighttime bradycardic episodes. We discussed risks, benefits, and alternatives to loop recorder implantation. The voices understanding. The patient to the best of his understanding is agreeable with the plan. We will make arrangements in the near future. Thank you for allowing us to participate in the care of this patient. Job ID: [id number]
[2018-11-05] MEDS ORDERED: Lidocaine 1% (PF) 30 ML VIAL ONE (13:58)
[2018-11-05] MEDS: cefTRIAXone\\ROCEPHIN 1 GM in Sodium Chloride 0.9% 100 ML IVPB SCH (15:42)
[2018-11-05] MEDS: Azithromycin 500 MG in Sodium Chloride 0.9% 250 ML 250 ML IVPB SCH (16:30)
--- NOTE | 2018-11-05 20:03 | PDOC.PN ---
- Subjective Encounter Start Date: 11/05/18 Encounter Start Time: 19:40 Subjective: f/u for advanced dementia, fall, vertebral compression fx conservatively -: managed. s/p ILR today due to bradycardic episodes. Sat EOB with PT -: and stood up with knee lifts. - Objective Resuscitation Status - Order Detail: 11/01/18 18:02 Resuscitation Status Routine Resuscitation Status: FULL: Full Resuscitation Discussed with: patient's - medical decision maker LAUREEN Reviewed: Yes Vital Signs & Weight: Vital Signs (12 hours) Temp Pulse Pulse Pulse Resp BP BP 11/05/18 16:00 97.2 F L 62 18 11/05/18 12:00 97.6 F 72 18 11/05/18 11:24 72 61 114/85 134/73 11/05/18 09:01 59 L BP Pulse Ox 11/05/18 16:00 137/72 95 11/05/18 12:00 114/85 96 11/05/18 11:24 11/05/18 09:01 Weight Admit Weight 208 lb 5 oz Weight 214 lb 6.4 oz I&O: 11/04/18 11/05/18 11/06/18 06:59 06:59 06:59 Intake Total 2954 311 240 Output Total 550 Balance 2404 311 240 Result Diagrams: 11/04/18 04:15 11/04/18 04:15 Additional Labs: Accuchecks 11/05/18 11:09 POC Glucose 113 H Microbiology 11/01/18 15:10 Nasopharyngeal swab Influenza Types A,B Direct EIA - Final 11/01/18 15:47 Venous blood - Left Hand Blood Culture - Preliminary Coagulase Neg Staphylococcus 11/01/18 15:41 Venous blood - Right Hand Blood Culture - Preliminary Specimen has been received and culture in progress. No Growth to date. 11/01/18 14:10 Urine Straight Catheter Urine Culture - Preliminary NO GROWTH AT 12 HOURS Laboratory Tests 11/01/18 11/01/18 11/01/18 11:33 11:33 15:47 WBC 17.8 H Creatinine 1.49 H Lactic Acid 4.3 H* TSH 3rd Generation 11/01/18 11/02/18 17:33 06:22 WBC Creatinine Lactic Acid 3.1 H TSH 3rd Generation 1.1511 Radiology Reviewed by me: Yes (Echo - EF 55-60%) EKG Reviewed by me: Yes (Tele - SR) Phys Exam - Physical Examination Constitutional: NAD alert, mumbles a few words HEENT: PERRLA, sclera anicteric, oral pharynx no lesions Neck: no nodes, no JVD, supple, full ROM Respiratory: no wheezing, no rales, no rhonchi, clear to auscultation bilateral S1, S2 Cardiovascular: RRR, no significant murmur, no rub, gallop Gastrointestinal: soft, non-tender, no distention, positive bowel sounds Musculoskeletal: no edema, pulses present Neurological: normal sensation, moves all 4 limbs Skin: normal turgor, cap refill <2 seconds Dx/Plan (1) Seizure Code(s): R56.9 - UNSPECIFIED CONVULSIONS Status: Acute Comment: Suspected given hx and clinical presentation, initiating Keppra, Neurology assistance appreciated, EEG pending (2) Acute metabolic encephalopathy Code(s): G93.41 - METABOLIC ENCEPHALOPATHY Status: Acute Comment: Multifactorial including PNA, dehydration and ? seizure, supportive mgmt, persistent (3) Pneumonia, bacterial Code(s): J15.9 - UNSPECIFIED BACTERIAL PNEUMONIA Status: Acute Comment: Suspected, start Omnicef 300mg BID, pulmonary supportive measures (4) KEVIN (acute kidney injury) Code(s): N17.9 - ACUTE KIDNEY FAILURE, UNSPECIFIED Status: Acute Comment: Improved, avoid nephrotoxic meds and limit contrast exposure (5) Lactic acidosis Code(s): E87.2 - ACIDOSIS Status: Acute Comment: Resolving (6) Dementia Code(s): F03.90 - UNSPECIFIED DEMENTIA WITHOUT BEHAVIORAL DISTURBANCE Status: Chronic Comment: ? type, continue supportive care, resume Namenda/Aricept, severe - Plan plan discussed w/ family, continue antibiotics, PT/OT, certified social workers in health care, out of bed/ambulate, DVT proph w/SCDs Stable currently -: D/C Zithromax/Rocephin -: Start Omnicef 300mg BID -: OOB/PT -: Await Rehab bed opening * Continue Megace
[2018-11-05] MEDS: levETIRAcetam 500 MG TAB PO SCH (20:21)
[2018-11-05] MEDS: Cefdinir 300 MG CAP PO SCH (20:22)
--- NOTE | 2018-11-05 21:57 | OP ---
DATE OF PROCEDURE: 11/05/2018 PROCEDURE PERFORMED: Loop recorder insertion. REFERRING PHYSICIAN: Dr. Jeff. REASON FOR PROCEDURE: Mr. Carrasquillo is a pleasant 63-year-old gentleman with history of dementia, recurrent possible syncopal spells, and marked nighttime bradycardia, likely due to sleep apnea, also history of seizure disorder, brought in with tachy-chelsey arrhythmias, here for a loop recorder insert. DESCRIPTION OF PROCEDURE: The precordial area was prepped, draped, and anesthetized using subcutaneous lidocaine in the 4th intercostal space with a standard [employer] tool kit. A [employer] LINQ loop recorder was inserted. The wound was closed with Dermabond. The device was interrogated and programmed per protocol. CONCLUSION: Successful LINQ recorder placement. PLAN: Routine followup in Dr. Jeff's office. Job ID: [id number]
[2018-11-06] MEDS: Levothyroxine Sodium 50 MCG TAB PO SCH (06:20)
[2018-11-06] MEDS: Ketorolac Tromethamine 30 MG/ML VIAL IVP PRN ×2 (07:19→16:44)
[2018-11-06] MEDS ORDERED: Haloperidol Lactate 5 MG/ML VIAL IM SCH (07:45)
--- NOTE | 2018-11-06 08:50 | EEG ---
Referring Physician: EDDIE LEWIS EEG # 19-31 TEST TYPE: ROUTINE PORTABLE INPATIENT REPORT: AN EEG USING THE INTERNATIONAL TEN-TWENTY SYSTEM OF ELECTRODE PLACEMENT WAS PERFORMED. The best waking background is a 8 hertz alpha frequency. The patient appeared to be drowsy through a lot of the study. Photic stimulation was unremarkable. No epileptiform features were present. IMPRESSION: THIS IS A NORMAL AWAKE AND DROWSY EEG. Marble Supervisor: GRACIA Field Gauger: EEG.TIESHA SOLIS
[2018-11-06] MEDS: Potassium Chloride 20 MEQ TAB PO SCH (11:32)
[2018-11-06] MEDS: Cefdinir 300 MG CAP PO SCH ×2 (11:33→21:02)
[2018-11-06] MEDS: Donepezil HCl 10 MG TAB PO SCH ×2 (11:33→21:02)
[2018-11-06] MEDS: levETIRAcetam 500 MG TAB PO SCH ×2 (11:33→21:03)
[2018-11-06] MEDS: Ubidecarenone 50 MG CAP PO SCH (11:33)
[2018-11-06] MEDS: Amlodipine 10 MG TAB PO SCH (11:33)
[2018-11-06] MEDS: Aspirin 81 mg Enteric Coated Tablet PO SCH (11:33)
[2018-11-06] MEDS: Megestrol Acetate 40 MG TAB PO SCH ×2 (11:48→21:03)
--- NOTE | 2018-11-06 14:24 | PDOC.CTH ---
Cardiology Progress Note - Subjective EP PROGRESS NOTE: Seen and evaluated for bradycardia and after ILR implant. Family bedside reporting aggressive behavior today. No new cardiac concerns. No recurrent seizure like activity. - Objective Vital Signs Temp Pulse Resp BP BP Pulse Ox 11/06/18 12:00 98.1 F 67 18 153/89 H 97 11/06/18 11:33 72 11/06/18 08:00 98.2 F 70 17 148/69 H 96 11/06/18 04:00 99.5 F 72 20 143/67 H 95 Admit Weight 208 lb 5 oz Weight 211 lb 8 oz 11/05/18 11/06/18 11/07/18 06:59 06:59 06:59 Intake Total 311 390 Balance 311 390 - Physical Examination General/Neuro: NAD, other: (alert. oriented to name) Neck: carotid US brisk, no JVD present Lungs: CTA, unlabored respirations Heart: PMI normal, RRR Abdomen: NT/ND - Telemetry Telemetry Rhythm: SR - Labs Result Diagrams: 11/04/18 04:15 11/04/18 04:15 Troponin/CKMB Troponin I Less than 0.010 ng/mL (< 0.028) 11/01/18 11:33 - Assessment/Plan 1. Syncope vs fall - more favorable for fall with no true loss of conscious. 2. Bradycardia, sinus -during HS only. Attributed to sleep apnea 3. Seizures 4. Dementia ILR placed yesterday. EP signing off. Will be followed by Dr Jeff. No need for outpatient EP follow up unless further/new rhythm issues are seen that require our attention. Thank you
--- NOTE | 2018-11-06 18:28 | PDOC.PN ---
- Subjective Encounter Start Date: 11/06/18 Encounter Start Time: 08:30 Subjective: pt up in bed very agitated - Objective Resuscitation Status - Order Detail: 11/01/18 18:02 Resuscitation Status Routine Resuscitation Status: FULL: Full Resuscitation Discussed with: patient's - medical decision maker Vital Signs & Weight: Vital Signs (12 hours) Temp Pulse Resp BP BP Pulse Ox 11/06/18 16:00 97.8 F 68 16 141/79 H 95 11/06/18 12:00 98.1 F 67 18 153/89 H 97 11/06/18 11:33 72 11/06/18 08:00 98.2 F 70 17 148/69 H 96 Weight Admit Weight 208 lb 5 oz Weight 211 lb 8 oz I&O: 11/05/18 11/06/18 11/07/18 06:59 06:59 06:59 Intake Total 311 390 480 Balance 311 390 480 Result Diagrams: 11/04/18 04:15 11/04/18 04:15 Phys Exam - Physical Examination Neck: no nodes, no JVD, supple, full ROM Respiratory: no wheezing, no rales, no rhonchi, wheezing present, clear to auscultation bilateral Cardiovascular: RRR, no significant murmur, no rub, gallop, irregular Gastrointestinal: soft, non-tender, no distention, positive bowel sounds Musculoskeletal: no edema, pulses present, edema present Dx/Plan (1) Seizure Code(s): R56.9 - UNSPECIFIED CONVULSIONS Status: Acute Comment: Suspected given hx and clinical presentation, initiating Keppra, Neurology assistance appreciated, EEG pending (2) Dementia Code(s): F03.90 - UNSPECIFIED DEMENTIA WITHOUT BEHAVIORAL DISTURBANCE Status: Chronic Comment: ? type, continue supportive care, resume Namenda/Aricept, severe (3) Pneumonia, bacterial Code(s): J15.9 - UNSPECIFIED BACTERIAL PNEUMONIA Status: Acute Comment: Suspected, start Omnicef 300mg BID, pulmonary supportive measures - Plan pt very agitated, was given haldol -: will continue abx for now -: pt's feels that when he starts feeling better he gets -: agitated and wants to go home. pt's wants pt to go to -: rehab but if he continues to be agitated she will take him home with PT * . Review of Systems - Review of Systems Other: unable to obtain - Medications/Allergies Allergies/Adverse Reactions: Allergies Allergy/AdvReac Type Severity Reaction Status Date / Time No Known Drug Allergies Allergy Verified 11/03/18 09:53 Medications: Current Medications Acetaminophen (Tylenol) 1,000 mg PO Q6H PRN PRN Reason: Moderate to Severe Pain (6-10) Last Admin: 11/03/18 17:07 Dose: 1,000 mg Amlodipine Besylate (Norvasc) 10 mg PO DAILY [facility] Last Admin: 11/06/18 11:33 Dose: 10 mg Aspirin (Ecotrin) 81 mg PO DAILY [facility] Last Admin: 11/06/18 11:33 Dose: 81 mg Cefdinir (Omnicef) 300 mg PO BID [facility] Last Admin: 11/06/18 11:33 Dose: 300 mg Coenzyme Q10 (Coenzyme Q10) 100 mg PO DAILY [facility] Last Admin: 11/06/18 11:33 Dose: 100 mg Donepezil HCl (Aricept) 10 mg PO BID [facility] Last Admin: 11/06/18 11:33 Dose: 10 mg Ketorolac Tromethamine (Toradol) 30 mg IVP Q6H PRN PRN Reason: Pain Stop: 11/08/18 19:15 Last Admin: 11/06/18 16:44 Dose: 30 mg Levetiracetam (Keppra) 500 mg PO BID [facility] Last Admin: 11/06/18 11:33 Dose: 500 mg Levothyroxine Sodium (Synthroid) 50 mcg PO 0600 [facility] Last Admin: 11/06/18 06:20 Dose: 50 mcg Lorazepam (Ativan) 1 mg SLOW IVP Q4H PRN PRN Reason: Seizures Last Admin: 11/05/18 22:46 Dose: 1 mg Megestrol Acetate (Megace) 80 mg PO BID [facility] Last Admin: 11/06/18 11:48 Dose: 80 mg Memantine (Namenda) 10 mg PO BID [facility] Last Admin: 11/06/18 11:33 Dose: 10 mg Potassium Chloride (K-Dur) 20 meq PO DAILY [facility] Last Admin: 11/06/18 11:32 Dose: 20 meq Quetiapine Fumarate (Seroquel) 50 mg PO HS [facility] Last Admin: 11/05/18 20:16 Dose: 50 mg Sodium Chloride (Flush - Normal Saline) 10 ml IVF Q12HR [facility]MTIA[facility] Last Admin: 11/06/18 11:35 Dose: 10 ml Sodium Chloride (Flush - Normal Saline) 10 ml IVF PRN PRN PRN Reason: Saline Flush Last Admin: 11/05/18 22:47 Dose: 10 ml
[2018-11-07] MEDS: Levothyroxine Sodium 50 MCG TAB PO SCH (05:43)
[2018-11-07 07:15] LABS: Anion Gap 13 mmol/L (10-20); BUN (Urea Nitrogen) 8 mg/dL (8.4-25.7); Calc. Creatinine Clearance 99 mL/min (70-130); Calcium 8.9 mg/dL (7.8-10.44); Carbon Dioxide 24 mmol/L (23-31); Chloride 109 mmol/L (98-107); Estimated GFR-MDRD 74; Glucose 91 mg/dL (80-115); Potassium 3.2 mmol/L (3.5-5.1); Sodium 143 mmol/L (136-145)
[2018-11-07] MEDS: Megestrol Acetate 40 MG TAB PO SCH ×2 (09:30→19:39)
[2018-11-07] MEDS: Potassium Chloride 20 MEQ TAB PO SCH (09:30)
[2018-11-07] MEDS: Ubidecarenone 50 MG CAP PO SCH (09:30)
[2018-11-07] MEDS: Cefdinir 300 MG CAP PO SCH ×2 (09:30→19:38)
[2018-11-07] MEDS: Donepezil HCl 10 MG TAB PO SCH ×2 (09:30→19:39)
[2018-11-07] MEDS: Amlodipine 10 MG TAB PO SCH (09:30)
[2018-11-07] MEDS: Aspirin 81 mg Enteric Coated Tablet PO SCH (09:30)
[2018-11-07] MEDS: levETIRAcetam 500 MG TAB PO SCH ×2 (09:31→19:38)
[2018-11-07] MEDS: Ketorolac Tromethamine 30 MG/ML VIAL IVP PRN ×3 (09:36→19:43)
[2018-11-07 12:23] VITALS: BMI 27.1
--- NOTE | 2018-11-07 14:45 | PDOC.PN ---
- Subjective Encounter Start Date: 11/07/18 Encounter Start Time: 14:43 Subjective: admitted after a fall at home followed by involuntary movements suggestive -: of seizure. Found to have pneumonia. more calm and cooperative today. - Objective Resuscitation Status - Order Detail: 11/01/18 18:02 Resuscitation Status Routine Resuscitation Status: FULL: Full Resuscitation Discussed with: patient's - medical decision maker Vital Signs & Weight: Vital Signs (12 hours) Temp Pulse Resp BP BP BP Pulse Ox 11/07/18 11:44 98.2 F 75 18 121/69 96 11/07/18 09:30 72 147/80 H 11/07/18 08:00 94 L 11/07/18 07:54 98.8 F 72 18 147/80 H 94 L 11/07/18 04:00 98.2 F 73 18 138/83 94 L Weight Admit Weight 208 lb 5 oz Weight 211 lb 8 oz I&O: 11/06/18 11/07/18 11/08/18 06:59 06:59 06:59 Intake Total 390 480 100 Balance 390 480 100 Result Diagrams: 11/04/18 04:15 11/07/18 06:36 Phys Exam - Physical Examination HEENT: PERRLA, moist MMs Neck: no JVD, supple fair air entry bilaterally with no obvious crackles or rhonchi Cardiovascular: RRR, no significant murmur Gastrointestinal: soft, non-tender, no distention, positive bowel sounds Musculoskeletal: no edema, pulses present conscious and alert, oriented to person at least. moves all limbs Dx/Plan (1) Fall Code(s): W19.XXXA - UNSPECIFIED FALL, INITIAL ENCOUNTER Status: Acute (2) Hypothyroidism Code(s): E03.9 - HYPOTHYROIDISM, UNSPECIFIED Status: Acute (3) HTN (hypertension) Code(s): I10 - ESSENTIAL (PRIMARY) HYPERTENSION Status: Acute (4) KEVIN (acute kidney injury) Code(s): N17.9 - ACUTE KIDNEY FAILURE, UNSPECIFIED Status: Acute Comment: Improved, avoid nephrotoxic meds and limit contrast exposure (5) Acute metabolic encephalopathy Code(s): G93.41 - METABOLIC ENCEPHALOPATHY Status: Acute Comment: Multifactorial including PNA, dehydration and ? seizure, supportive mgmt, persistent (6) Lactic acidosis Code(s): E87.2 - ACIDOSIS Status: Acute Comment: Resolving (7) Pneumonia, bacterial Code(s): J15.9 - UNSPECIFIED BACTERIAL PNEUMONIA Status: Acute Comment: Suspected, start Omnicef 300mg BID, pulmonary supportive measures (8) Seizure Code(s): R56.9 - UNSPECIFIED CONVULSIONS Status: Acute Comment: Suspected given hx and clinical presentation, initiating Keppra, Neurology assistance appreciated, EEG pending (9) Dementia Code(s): F03.90 - UNSPECIFIED DEMENTIA WITHOUT BEHAVIORAL DISTURBANCE Status: Chronic Comment: ? type, continue supportive care, resume Namenda/Aricept, severe (10) Physical deconditioning Code(s): R53.81 - OTHER MALAISE Status: Acute - Plan Continue current treatments -: Get repeat BMP and magnesium in the am -: Awaiting acute rehab intake evaluation -: Continue antiepileptic * .
[2018-11-08] MEDS: Levothyroxine Sodium 50 MCG TAB PO SCH (05:41)
[2018-11-08] MEDS: Ketorolac Tromethamine 30 MG/ML VIAL IVP PRN ×3 (09:50→21:55)
[2018-11-08] MEDS: Cefdinir 300 MG CAP PO SCH ×2 (09:54→20:36)
[2018-11-08] MEDS: levETIRAcetam 500 MG TAB PO SCH ×2 (09:54→20:37)
[2018-11-08] MEDS: Aspirin 81 mg Enteric Coated Tablet PO SCH (09:55)
[2018-11-08] MEDS: Amlodipine 10 MG TAB PO SCH (09:56)
[2018-11-08] MEDS: Ubidecarenone 50 MG CAP PO SCH (09:56)
[2018-11-08] MEDS: Donepezil HCl 10 MG TAB PO SCH ×2 (09:56→20:37)
[2018-11-08] MEDS: Megestrol Acetate 40 MG TAB PO SCH ×2 (09:56→20:37)
[2018-11-08] MEDS: Potassium Chloride 20 MEQ TAB PO SCH (13:41)
--- NOTE | 2018-11-08 13:50 | PDOC.PN ---
- Subjective Encounter Start Date: 11/08/18 Encounter Start Time: 13:48 Subjective: Was sleeping most of the morning but fully awake currently. -: Denied any discomfort, Oral intake is increasing. - Objective Resuscitation Status - Order Detail: 11/01/18 18:02 Resuscitation Status Routine Resuscitation Status: FULL: Full Resuscitation Discussed with: patient's - medical decision maker Vital Signs & Weight: Vital Signs (12 hours) Temp Pulse BP BP Pulse Ox 11/08/18 09:56 69 144/70 H 11/08/18 08:00 95 11/08/18 07:47 98.3 F 144/70 H Weight Admit Weight 208 lb 5 oz Weight 211 lb 8 oz I&O: 11/07/18 11/08/18 11/09/18 06:59 06:59 06:59 Intake Total 480 100 Output Total 2300 Balance 480 100 -2300 Result Diagrams: 11/04/18 04:15 11/07/18 06:36 Phys Exam - Physical Examination male in no distress. afebrile. HEENT: PERRLA, moist MMs Neck: no JVD, supple good air entry bilaterally with no crackles or rhonchi Cardiovascular: RRR, no rub Gastrointestinal: soft, non-tender, no distention, positive bowel sounds Musculoskeletal: no edema, pulses present Neurological: non-focal, moves all 4 limbs Awake. slow mentation. some memory lapses noted Deviation from normal: Oriented at least to self and place. No agitation or restlessness Dx/Plan (1) Fall Code(s): W19.XXXA - UNSPECIFIED FALL, INITIAL ENCOUNTER Status: Acute (2) Hypothyroidism Code(s): E03.9 - HYPOTHYROIDISM, UNSPECIFIED Status: Acute (3) HTN (hypertension) Code(s): I10 - ESSENTIAL (PRIMARY) HYPERTENSION Status: Acute (4) KEVIN (acute kidney injury) Code(s): N17.9 - ACUTE KIDNEY FAILURE, UNSPECIFIED Status: Acute Comment: Improved, avoid nephrotoxic meds and limit contrast exposure (5) Acute metabolic encephalopathy Code(s): G93.41 - METABOLIC ENCEPHALOPATHY Status: Acute Comment: Multifactorial including PNA, dehydration and ? seizure, supportive mgmt, persistent (6) Lactic acidosis Code(s): E87.2 - ACIDOSIS Status: Acute Comment: Resolving (7) Pneumonia, bacterial Code(s): J15.9 - UNSPECIFIED BACTERIAL PNEUMONIA Status: Acute Comment: Suspected, start Omnicef 300mg BID, pulmonary supportive measures (8) Seizure Code(s): R56.9 - UNSPECIFIED CONVULSIONS Status: Acute Comment: Suspected given hx and clinical presentation, initiating Keppra, Neurology assistance appreciated, EEG pending (9) Dementia Code(s): F03.90 - UNSPECIFIED DEMENTIA WITHOUT BEHAVIORAL DISTURBANCE Status: Chronic Comment: ? type, continue supportive care, resume Namenda/Aricept, severe (10) Physical deconditioning Code(s): R53.81 - OTHER MALAISE Status: Acute (11) Hypokalemia Code(s): E87.6 - HYPOKALEMIA Status: Acute - Plan Replete serum potassium with oral KCL -: get serum magnesium in the am given recurrent hypokalemia -: Continue current treatments -: awaiting rehab evaluation. * .
[2018-11-08] MEDS ORDERED: Potassium Chloride 20 MEQ TAB PO SCH (14:00)
--- NOTE | 2018-11-09 07:31 | PDOC.PN ---
- Subjective Encounter Start Date: 11/09/18 Encounter Start Time: 07:29 Subjective: Seen and examined feeling ok - Objective Resuscitation Status - Order Detail: 11/01/18 18:02 Resuscitation Status Routine Resuscitation Status: FULL: Full Resuscitation Discussed with: patient's - medical decision maker Vital Signs & Weight: Vital Signs (12 hours) Temp Pulse Resp BP BP Pulse Ox 11/09/18 03:25 99.4 F 69 16 123/78 96 11/09/18 00:00 99.1 F 67 16 120/73 95 11/08/18 19:51 98.5 F 69 16 118/85 93 L Weight Admit Weight 208 lb 5 oz Weight 211 lb 8 oz I&O: 11/08/18 11/09/18 11/10/18 06:59 06:59 06:59 Intake Total 100 Output Total 2300 Balance 100 -2300 Result Diagrams: 11/04/18 04:15 11/07/18 06:36 Phys Exam - Physical Examination Constitutional: NAD HEENT: PERRLA, moist MMs, sclera anicteric, TM's clear Neck: no nodes, no JVD, supple, full ROM Respiratory: no wheezing, no rales, no rhonchi, clear to auscultation bilateral Cardiovascular: RRR, no significant murmur, no rub Gastrointestinal: soft, non-tender Dx/Plan (1) KEVIN (acute kidney injury) Code(s): N17.9 - ACUTE KIDNEY FAILURE, UNSPECIFIED Status: Acute Comment: Improved, avoid nephrotoxic meds and limit contrast exposure (2) Acute metabolic encephalopathy Code(s): G93.41 - METABOLIC ENCEPHALOPATHY Status: Acute Comment: Multifactorial including PNA, dehydration and ? seizure, supportive mgmt, persistent (3) Fall Code(s): W19.XXXA - UNSPECIFIED FALL, INITIAL ENCOUNTER Status: Acute (4) HTN (hypertension) Code(s): I10 - ESSENTIAL (PRIMARY) HYPERTENSION Status: Acute (5) Hypokalemia Code(s): E87.6 - HYPOKALEMIA Status: Acute (6) Hypothyroidism Code(s): E03.9 - HYPOTHYROIDISM, UNSPECIFIED Status: Acute (7) Lactic acidosis Code(s): E87.2 - ACIDOSIS Status: Acute Comment: Resolving (8) Physical deconditioning Code(s): R53.81 - OTHER MALAISE Status: Acute - Plan PT/OT, social media sr strategy manager Follow up electrolytes especially magnessium and potassium -: Placement pending * .
[2018-11-09 08:06] LABS: Anion Gap 11 mmol/L (10-20); BUN (Urea Nitrogen) 16 mg/dL (8.4-25.7); Calc. Creatinine Clearance 104 mL/min (70-130); Calcium 8.6 mg/dL (7.8-10.44); Carbon Dioxide 23 mmol/L (23-31); Chloride 113 mmol/L (98-107); Estimated GFR-MDRD 78; Glucose 92 mg/dL (80-115); Potassium 3.5 mmol/L (3.5-5.1); Sodium 143 mmol/L (136-145)
[2018-11-09] MEDS: Ubidecarenone 50 MG CAP PO SCH (08:31)
[2018-11-09] MEDS: Megestrol Acetate 40 MG TAB PO SCH ×2 (08:31→20:21)
[2018-11-09] MEDS: Aspirin 81 mg Enteric Coated Tablet PO SCH (08:31)
[2018-11-09] MEDS: traMADol HCl 50 MG TAB PO PRN ×2 (08:31→20:21)
[2018-11-09] MEDS: levETIRAcetam 500 MG TAB PO SCH ×2 (08:32→20:21)
[2018-11-09] MEDS: Potassium Chloride 20 MEQ TAB PO SCH (08:32)
[2018-11-09] MEDS: Donepezil HCl 10 MG TAB PO SCH ×2 (08:32→20:21)
[2018-11-09] MEDS: Levothyroxine Sodium 50 MCG TAB PO SCH (08:32)
[2018-11-09] MEDS: Amlodipine 10 MG TAB PO SCH (08:32)
[2018-11-09] MEDS: Cefdinir 300 MG CAP PO SCH ×3 (08:34→20:21)
[2018-11-10] MEDS: Ubidecarenone 50 MG CAP PO SCH (09:02)
[2018-11-10] MEDS: Aspirin 81 mg Enteric Coated Tablet PO SCH (09:03)
[2018-11-10] MEDS: Amlodipine 10 MG TAB PO SCH (09:03)
[2018-11-10] MEDS: Cefdinir 300 MG CAP PO SCH (09:03)
[2018-11-10] MEDS: Megestrol Acetate 40 MG TAB PO SCH (09:03)
[2018-11-10] MEDS: Potassium Chloride 20 MEQ TAB PO SCH (09:03)
[2018-11-10] MEDS: levETIRAcetam 500 MG TAB PO SCH (09:04)
[2018-11-10] MEDS: Donepezil HCl 10 MG TAB PO SCH (09:04)
[2018-11-10] MEDS: Levothyroxine Sodium 50 MCG TAB PO SCH (09:04)
[2018-11-10 13:43] VITALS: BP 135/85; TEMP 98.7
--- NOTE | 2018-11-11 05:44 | DIS ---
DATE OF ADMISSION: 11/01/2018 DATE OF DISCHARGE: 11/10/2018 DISCHARGE DISPOSITION: Home. PRIMARY CARE PHYSICIAN: UDAY Larsen, [facility] in [place]. CHIEF COMPLAINT: Fall. PRINCIPAL DIAGNOSES ON ADMISSION: 1. Sepsis, possibly due to pneumonia. 2. Compression fractures, both acute and chronic. 3. Follow up with concern for seizure given history. 4. Possible acute kidney injury, unknown baseline of patient's renal function. 5. Moderate frontal lobe dementia. 6. Hypothyroidism. 7. Hypertension. 8. Prolonged QT interval. DISCHARGE DIAGNOSES: 1. Fall with concern for seizure, given history of Alzheimer's with dementia. 2. Compression fractures, both acute and chronic. 3. Acute kidney injury, improved. 4. Clinical criteria for sepsis, with possibility of bacterial pneumonia, status post empiric treatment with antibiotics. 5. Hypothyroidism. 6. Frontal lobe dementia, followed by Dr. Brown in [place], [place]. 7. Essential hypertension. 8. Urinary retention. HOSPITAL COURSE: Mr. Carrasquillo is a 63-year-old gentleman with a history of frontal lobe dementia, followed by Neurology, Dr. Brown in [place], [place]. At baseline, he also has hypertension, as well as hypothyroidism. He presented via EMS after sustaining a fall at home. The patient's reported that as he was exiting the bathroom, he fell, this was not witnessed, reports he was stiff, requiring 30 to 40 minutes for him to come to. One episode of vomiting as well as worsened confusion following the event. Increasing difficulties have become apparent at home as well in the recent time frame, including increasing agitation, poor appetite. No specific fever, chills, however. Patient has a background history of compression fracture, and on admission to the facility at this time, was noted to have mild anterior wedging of T1 vertebral body suggesting age-indeterminate anterior wedge compression fracture of cervical spine. Lumbar spine CT revealed chronic fracture at L1 with mild acute compression fracture at L6. Thoracic spine CT with indeterminate mild compression deformity T1, T2, T3, as well as likely chronic endplate irregularity, superior endplate of T10, T11, and vertebral plana at L1. Additional diagnostic data also unremarkable with elevated lactic acid of 4.3, white blood cell count 17.8 with 91% neutrophils. Flu swab was unremarkable. The patient was admitted to the hospital for additional evaluation and care. During the hospital stay, patient underwent evaluation by Neurology. Recommendation for ongoing Keppra, prescription provided. Initial antibiotics include Rocephin and azithromycin with subsequent transition to oral Omnicef. Antibiotic completion prior to discharge, with defervescence of leukocytosis. Patient also underwent evaluation by cardiology services, with loop event recorder placed on 11/05/2018 in the context of fall of unknown etiology. From the renal standpoint, IV hydration provided, with return of kidney function to baseline prior to discharge to home. Electrolyte repletion required intermittently, primarily to address mild hypokalemia. Ultimately, patient's family initially authorized referral for placement. However, at the time of my evaluation on 11/10/2018, the patient's family communicated to me their change in preference, instead, preferring to return to home. This is my first encounter with the patient and his family. One issue noted included urinary retention. A Harrison catheter was placed on 11/09/2018. Patient's states he has times at home where he will have extensive period of time between voids. Prior to discharge, Harrison catheter to be discontinued. Patient's and family are open to teaching regarding intermittent catheterization, which can be performed safely at home should it be required. Additionally, Home Health request has been made to follow up and reiterate this teaching. At the time of my evaluation, the patient is agitated, confused. His states that while he is usually confused, the agitation he is experiencing in the hospital is increased from baseline, and she believes he will be more calm in his home setting. Lungs are clear to auscultation with good aeration. Heart, regular, rate, rhythm. No significant lower extremity edema. He is moving extremities spontaneously in bed. DISCHARGE MEDICATIONS: As follows: New prescription. 1. Keppra 500 mg p.o. b.i.d., dispensing 60 tablets. 2. Flomax 0.4 mg p.o. at bedtime, dispensing 30 tablets. Remainder of medications are per resume from home. These include; 1. Norvasc 10 mg p.o. once daily. 2. Aspirin 81 mg p.o. once daily. 3. Donepezil 10 mg p.o. twice daily. 4. Hydrochlorothiazide 12.5 mg p.o. once daily. 5. Levothyroxine 50 mcg p.o. once daily. 6. Memantine 10 mg p.o. twice daily. 7. Multivitamin p.o. daily. 8. Potassium chloride 20 mEq p.o. daily. 9. Seroquel 50 mg p.o. at bedtime. 10. Coenzyme Q-10 is 100 mg p.o. daily. DIET: Regular as tolerated. FOLLOWUP: Follow up with his primary neurologist in [place] in [place]. Remainder of post hospital followup with primary care physician. CONDITION ON DISCHARGE: Improved, relative to admission, on a background of chronic and progressive dementia. Total time spent discharge planning/care 45 minutes. Job ID: [id number]
== END 2018-11-10 15:34 | disposition home health service (06) | DRG 853 ==
LOC: ERS 11:04 → 2NO 19:06 → T4-A 11-06 19:02
PROVIDERS: ADMIT Family Medicine; ATTEND Family Medicine
PROC: 0JH632Z Insertion of Monitoring Device into Chest Subcutaneous Tissue and Fascia, Percutaneous Approach (ICD-10-PCS; principal; 2018-11-05)
DX: A41.9 Sepsis, unspecified organism (principal); G93.41 Metabolic encephalopathy; J15.9 Unspecified bacterial pneumonia; S32.008A Other fracture of unspecified lumbar vertebra, initial encounter for closed fracture; N39.0 Urinary tract infection, site not specified; E87.2 Acidosis; N17.9 Acute kidney failure, unspecified; G40.89 Other seizures; I47.1 Supraventricular tachycardia; G31.09 Other frontotemporal neurocognitive disorder; E87.6 Hypokalemia; G47.33 Obstructive sleep apnea (adult) (pediatric); I49.5 Sick sinus syndrome; F02.80 Dementia in other diseases classified elsewhere, unspecified severity, without behavioral disturbance, psychotic disturbance, mood disturbance, and anxiety; R33.9 Retention of urine, unspecified; I10 Essential (primary) hypertension; E03.9 Hypothyroidism, unspecified; I45.81 Long QT syndrome; Z79.82 Long term (current) use of aspirin; W18.30XA Fall on same level, unspecified, initial encounter; Y92.002 Bathroom of unspecified non-institutional (private) residence as the place of occurrence of the external cause
CPT/HCPCS: 12001; 33285; 36415; 36416; 51701; 70450; 70551; 71045; 72125; 72128; 72131; 80048; 80053; 81003; 81015; 82140; 83605; 83735; 84100; 84443; 84484; 85007; 85025; 85027; 87040; 87086; 87149; 87804; 93005; 93010; 93306; 95816; 95819; 96361; 96365; 96367; C1764; J0456; J0696; J1630; J1885; J1953; J2001; J2060; J7050; S0179

== ENCOUNTER 2018-12-22 14:53 | Observation (INO) | payer BC, OTHER ==
[2018-12-22] MEDS ORDERED: Lorazepam 2 MG/ML VIAL ONE ×2 (14:55→18:36)
[2018-12-22] MEDS ORDERED: Haloperidol Lactate 5 MG/ML VIAL ONE (14:55)
[2018-12-22 15:20] LABS: #Eosinphils 0.1 thou/uL (0.0-0.7); #Monocytes 0.2 thou/uL (0.11-0.59); #Neutrophils 2.5 thou/uL (1.40-6.50); %Basophils 0.3 % (0.0-1.0); %Eosinophils 2.2 % (0.0-10.0); %Lymphocytes 27.1 % (21.0-51.0); %Monocytes 5.9 % (0.0-10.0); %Neutrophils 64.5 % (42.0-75.0); Hemoglobin 12.9 g/dL (14.0-18.0); Mean Corpuscular HGB CONC 34.4 g/dL (32.0-36.0); Mean Corpuscular Hemoglobin 30.1 pg (27.0-31.0); Mean Corpuscular Volume 87.5 fL (78.0-98.0); Platelet Count 164 thou/uL (130-400); RBC Distribution Width 12.1 % (11.5-14.5); Red Blood Cell (RBC) Count 4.29 mill/uL (4.70-6.10); White Blood Cell (WBC) Count 3.8 thou/uL (4.8-10.8)
[2018-12-22 15:32] LABS: Bilirubin Negative (Negative); Blood, Urine Negative (Negative); Clarity CLEAR (Clear); Glucose, Urine (Dipstick) Negative (Negative); Leukocyte Negative (Negative); Nitrite Negative (Negative); Protein, Urine (Dipstick) Negative (Neg-Trace); Specific Gravity, Urine 1.017 (1.002-1.036); Urobilinogen 0.2 mg/dL (0.2-1.0)
[2018-12-22 15:41] LABS: ALT (SGPT) Less than 7 U/L (8-55); AST (SGOT) 9 U/L (5-34); Albumin 3.8 g/dL (3.4-4.8); Alkaline Phosphatase 67 U/L (40-150); Anion Gap 12 mmol/L (10-20); BUN (Urea Nitrogen) 9 mg/dL (8.4-25.7); Bilirubin, Total 0.5 mg/dL (0.2-1.2); Calc. Creatinine Clearance 0 mL/min (70-130); Calcium 9.1 mg/dL (7.8-10.44); Carbon Dioxide 27 mmol/L (23-31); Chloride 106 mmol/L (98-107); Estimated GFR-MDRD 56; Globulin 2.2 g/dL (2.4-3.5); Glucose 110 mg/dL (80-115); Lipase 36 U/L (8-78); Potassium 3.4 mmol/L (3.5-5.1); Sodium 142 mmol/L (136-145)
[2018-12-22] MEDS ORDERED: Ziprasidone 20 MG VIAL ONE (18:43)
--- NOTE | 2018-12-22 20:46 | CT ---
EXAM: Brain CT scan Without contrast: HISTORY: Altered mental status COMPARISON: 11/01/2018 FINDINGS: Mild sinus mucosal disease. Atrophy and chronic white matter ischemic change. No focal mass or midline shift. No intra or extra-axial hemorrhage. IMPRESSION: No mass or bleed or other significant acute intracranial process.
[2018-12-22] MEDS ORDERED: Lorazepam 2 MG/ML VIAL SLOW IVP PRN (23:36)
[2018-12-22 23:57] VITALS: BMI 27.4
[2018-12-23] MEDS ORDERED: Acetaminophen 325 MG TAB PO PRN (09:40)
[2018-12-23] MEDS ORDERED: Acetaminophen 650 MG Suppository PR PRN (09:40)
[2018-12-23] MEDS ORDERED: Potassium Chloride 20 MEQ TAB PO SCH (09:45)
--- NOTE | 2018-12-23 12:09 | RAD ---
PORTABLE CHEST ONE VIEW: 12/23/2018 10:55 a.m. HISTORY: Decreased breath sounds at the lung bases. Altered mental status. COMPARISON: 11/01/2018 FINDINGS: The lungs are hypoexpanded. The heart size is stable. Evidence of old granulomatous disease is agai n seen. No lobar consolidation, pneumothoraces, cony pulmonary edema, or large pleural effusions ar e seen. POS: [facility]
[2018-12-23 16:09] VITALS: BP 144/83; TEMP 97.8
[2018-12-23] MEDS ORDERED: Lorazepam 0.5 MG TAB PO SCH (16:30)
[2018-12-23] MEDS ORDERED: Famotidine 20 MG TAB PO SCH (21:00)
--- NOTE | 2018-12-24 18:22 | DIS ---
DATE OF ADMISSION: 12/22/2018 DATE OF DISCHARGE: 12/23/2018 CONSULTING PHYSICIANS: None. DISCHARGE DIAGNOSES: 1. Alzheimer's. 2. Hypokalemia. 3. Hypertension. 4. Hypothyroidism. REASON FOR ADMISSION: Altered mental status. HISTORY OF PRESENT ILLNESS: Mr. Carrasquillo is a 63-year-old man with a known history of advanced dementia. The patient was brought in from the long-term due to concerns for altered mental status, given an episode of combativeness. The patient was seen in the ER and noted to have normal vital signs. He was afebrile. Underwent a chest x-ray that was unremarkable. Also underwent a urinalysis that was negative. The patient had a CT of the brain that showed no acute changes. He was treated with Ativan and Haldol. According to the family, who are present today, the patient is at his baseline and does have frequent episodes of being combative. The long-term apparently was wanting to rule out any underlying infection. He has already been preapproved for admission to [facility] in [place]. Therefore, the patient was medically cleared for discharge directly to [facility]. Throughout his stay, he remained at baseline. Able to eat some food with assistance. He was not physically combative with the nurses, and did not require any restraints while on the floor. Did not require any Ativan until discharge, which was simply requested to help him relax for the transport to [facility]. The patient did undergo replacement of his potassium which he swallowed without difficulty. REVIEW OF SYSTEMS: At this time, the patient does not seem to be in any complaints. He denies having any pain when asked. Otherwise assessment was very limited. No apparent respiratory distress. No urinary difficulties. No diarrhea or constipation. No melena. No bright red blood per rectum. He remained afebrile. All other review of systems negative. PAST MEDICAL HISTORY: 1. Hypertension. 2. Hypothyroidism. 3. Advanced dementia. PAST SURGICAL HISTORY: None. SOCIAL HISTORY: The patient does not smoke and does not drink any alcohol. No drug use. He currently lives in a long-term. ALLERGIES: NO KNOWN DRUG ALLERGIES. CURRENT MEDICATIONS: 1. Seroquel. 2. Namenda. 3. Losartan. 4. Donepezil. 5. Hydrochlorothiazide. 6. Levothyroxine. 7. Amlodipine. PHYSICAL EXAMINATION: GENERAL: The patient appears well-developed, well-developed, well nourished, and is in no acute distress. VITAL SIGNS: Temperature 98.1, pulse 79, respirations 15, O2 saturation 93% on room air, and blood pressure 142/85. HEENT: Normocephalic and atraumatic. Pupils are equal, round, and reactive to light. Sclerae anicteric. Oropharynx is clear. NECK: Supple. LUNGS: Clear to auscultation bilaterally. CARDIAC: Regular rhythm. ABDOMEN: Soft, nontender. Does not have any distention. No guarding or rigidity. EXTREMITIES: Without any notable edema. NEUROLOGIC: Unable to assess for orientation to person or place. The patient is at his baseline. He is minimally verbal. Unable to answer questions. At times, able to follow commands. LABORATORY DATA: Full blood count unremarkable. Electrolytes notable for a potassium of 3.4, creatinine 1.3, BUN 9, GFR 56. LFTs unremarkable. Lipase . Urinalysis negative. IMAGING DATA: Chest x-ray, no acute changes. Heart size stable, old granulomatous disease again seen. No acute changes present. CT brain also without any acute changes. Mild sinus mucosal disease. Atrophy and chronic white matter ischemic change present. No acute intracranial process. CONDITION AT DISCHARGE: Stable. ACTIVITY: As per baseline. He is at risk for falls. Unsteady on his feet at baseline. DIET: Requires assistance with meals. He is on a mechanically soft heart healthy diet. DISCHARGE MEDICATIONS: The patient was advised to resume home medications. DISPOSITION: The patient to be discharged straight to [facility]. FOLLOWUP: He to be seen by primary care for continued management of his comorbidities. The patient was seen by Dr. Galarza, who agrees with plan of care as described above. Job ID: [id number]
== END 2018-12-23 18:13 ==
LOC: ERS 14:53 → T4-A 20:45
PROVIDERS: ADMIT Emergency Medicine; ATTEND Emergency Medicine
DX: G30.9 Alzheimer's disease, unspecified (principal); F02.81 Dementia in other diseases classified elsewhere, unspecified severity, with behavioral disturbance; F05 Delirium due to known physiological condition; E87.6 Hypokalemia; I10 Essential (primary) hypertension; E03.9 Hypothyroidism, unspecified; Z79.899 Other long term (current) drug therapy
CPT/HCPCS: 51701; 70450; 71045; 80053; 81003; 83690; 85025; 96372; 96374; G0378; J1630; J2060; J3486

== ENCOUNTER 2019-02-03 13:24 | Emergency (ER) | payer BC, OTHER ==
[~2019-02-03 13:24] MED LIST: ISOVUE-370 76%-LOCM 1 ML ONE
[2019-02-03] MEDS ORDERED: Lorazepam 2 MG/ML VIAL ONE ×2 (13:28→14:46)
[2019-02-03] MEDS ORDERED: Haloperidol Lactate 5 MG/ML VIAL ONE (14:02)
--- NOTE | 2019-02-03 14:09 | CT ---
Head CT without contrast 02/03/2019: COMPARISON: 12/22/2018 HISTORY: Seizure, sepsis, altered mental status, confusion TECHNIQUE: Axial CT imaging at 5 mm intervals from vertex through skull base without contrast FINDINGS: Moderate cerebral volume loss with associated prominence of the CSF containing spaces noted . Imaged paranasal sinuses and mastoid air cells are unremarkable. No displaced calvarial fracture, intracranial hemorrhage, midline shift, or mass effect. IMPRESSION: Cerebral volume loss with no evidence for intracranial hemorrhage.
[2019-02-03 14:25] LABS: #Eosinphils 0.1 thou/uL (0.0-0.7); #Lymphocytes 0.9 thou/uL (1.20-3.40); #Monocytes 0.5 thou/uL (0.11-0.59); #Neutrophils 9.4 thou/uL (1.40-6.50); %Basophils 0.1 % (0.0-1.0); %Eosinophils 0.9 % (0.0-10.0); %Lymphocytes 8.5 % (21.0-51.0); %Monocytes 4.8 % (0.0-10.0); %Neutrophils 85.7 % (42.0-75.0); Hemoglobin 12.3 g/dL (14.0-18.0); Mean Corpuscular HGB CONC 34.6 g/dL (32.0-36.0); Mean Corpuscular Hemoglobin 29.3 pg (27.0-31.0); Mean Corpuscular Volume 84.5 fL (78.0-98.0); Mean Platelet Volume 8.3 fL (7.4-10.4); Platelet Count 173 thou/uL (130-400); RBC Distribution Width 13.5 % (11.5-14.5); Red Blood Cell (RBC) Count 4.21 mill/uL (4.70-6.10)
[2019-02-03 14:38] LABS: ALT (SGPT) 36 U/L (8-55); AST (SGOT) 17 U/L (5-34); Albumin 3.3 g/dL (3.4-4.8); Alkaline Phosphatase 98 U/L (40-150); Anion Gap 15 mmol/L (10-20); BUN (Urea Nitrogen) 16 mg/dL (8.4-25.7); Bilirubin, Total 0.8 mg/dL (0.2-1.2); CK (CPK) 141 U/L (30-200); Calc. Creatinine Clearance 0 mL/min (70-130); Calcium 8.7 mg/dL (7.8-10.44); Carbon Dioxide 16 mmol/L (23-31); Chloride 111 mmol/L (98-107); Estimated GFR-MDRD 74; Globulin 2.6 g/dL (2.4-3.5); Glucose 130 mg/dL (80-115); Protein, Total 5.9 g/dL (5.8-8.1); Sodium 138 mmol/L (136-145)
--- NOTE | 2019-02-03 15:01 | RAD ---
Frontal radiograph chest: 02/03/2019 COMPARISON: 12/23/2018 HISTORY: Seizures, dementia FINDINGS: Heart and mediastinal contours are stable. Calcified lymph nodes are noted in the left pricilla r region. No pneumothorax, pleural fluid, focal consolidation, or alveolar edema. IMPRESSION: No acute findings.
[2019-02-03 15:37] LABS: Bilirubin Small (Negative); Blood, Urine Negative (Negative); Clarity CLOUDY (Clear); Glucose, Urine (Dipstick) Negative (Negative); Leukocyte Negative (Negative); Nitrite Negative (Negative); Protein, Urine (Dipstick) 30 mg/dL (Neg-Trace); Specific Gravity, Urine 1.021 (1.002-1.036)
[2019-02-03 15:38] LABS: Bacteria/HPF None Seen HPF (None Seen); RBC/HPF 0-3 HPF (0-3); WBC/HPF 0-3 HPF (0-3)
[2019-02-03 15:49] LABS: Hyaline Casts/LPF NONE SEEN LPF (0-3 Hyaline); Manual Microscopic Reviewed? No Path Casts Seen; Renal Epithelial None Seen HPF (0-3); Transitional Epithelial NONE SEEN HPF (0-3)
[2019-02-03] MEDS ORDERED: Cephalexin 250 MG CAP ONE ×2 (17:02→17:03)
[2019-02-03] MEDS ORDERED: levETIRAcetam 500 MG/100 ML PREMIX BAG ONE (17:07)
--- NOTE | 2019-02-03 19:11 | CT ---
ABDOMEN CT WITH CONTRAST PELVIC CT WITH CONTRAST 02/03/19 HISTORY: Combative patient. Seizures. Colitis. Elevated white blood cell count. COMPARISON: None. CORRELATION: CT thoracic and lumbar spine 11/01/18. FINDINGS: ABDOMEN CT: Chronic changes in the lung bases. Trace left sided effusion may be present. Heart size is upper norm al. No significant pericardial fluid. The thoracic aorta and abdominal aorta have an overall normal c aliber. No periaortic fat stranding. Surgically absent gallbladder. Visualized portal vein appears to be patent. The liver, spleen, pancre as have appropriate attenuation and enhancement. Nodule involving the left adrenal gland, incompletel y evaluated measuring 1.3 x 1.3 cm. Multiple splenules at the splenic hilum are noted. Symmetric enhancement of the kidneys. Bilaterally, no obstructive uropathy. There are two exophytic lesions emanating from the lower pole of the left kidney with attenuation coefficients of 12 and 28 H [place]unsfield units. Possibility of a slightly complex 1.1 x 1.3 cm cyst and an essentially simple 2.7 x 3.1 cm cyst is noted. Small left parapelvic cyst is identified. Bilaterally, no obstructive uropathy. No gastrohepatic, retrocrural or periportal lymphadenopathy. No mesenteric mass, lymphadenopathy, free air or free fluid. Limited evaluation of the alimentary canal due to the lack of oral contrast administration. Gastric m ucosa, duodenum, and multiple normal caliber small bowel loops are identified. Though there is no ev idence of small bowel distention, there are some fluid filled loops of small bowel in the left hemiab domen. Unremarkable ileocecal junction. Normal caliber appendix. Scattered fecal material in a nondis tended, nondilated colon. Occasional diverticulum. No diverticulitis. CT PELVIS: Unremarkable urinary bladder. No pelvic mass, lymphadenopathy, free air or free fluid. There are no lytic or blastic lesions in the osseous structures. There appear to be indeterminate com pression fracture at L2 and L3. Chronic compression fracture at L1. Indeterminate compression fractur e at T12 is also noted. IMPRESSION: 1. Indeterminate compression fractures at L2 and possibly at L3. Stable vertebra plana at L1. 2. Indeterminate compression fracture at T12. Correlate clinically for point tenderness in the r egions of concern as described above. Further evaluation with MRI if clinically warranted to assess T 12, L2 and L3. 3. No acute abnormality in the abdomen or pelvis. There are a few nonspecific fluid filled loops of small bowel that are not definitively obstructed. 4. Indeterminate nodule in the left adrenal gland, incompletely evaluated. Correlation made with a previous thoracic spine CT demonstrates a stable 1.3 cm mass with attenuation coefficient of 1 Francoise nsfield unit suggesting a benign adenoma. Confirmation with a adrenal mass CT can be performed. POS: PERLA
== END 2019-02-03 17:05 ==
LOC: ERS 13:24
DX: R56.9 Unspecified convulsions (principal); E03.9 Hypothyroidism, unspecified; I10 Essential (primary) hypertension; F03.90 Unspecified dementia, unspecified severity, without behavioral disturbance, psychotic disturbance, mood disturbance, and anxiety; Z79.899 Other long term (current) drug therapy; Z79.82 Long term (current) use of aspirin
CPT/HCPCS: 36415; 51701; 70450; 71045; 74177; 80053; 81003; 81015; 82550; 84484; 85025; 93005; 96361; 96365; 96375; 96376; J1630; J1953; J2060; Q9966

== ENCOUNTER 2020-08-22 22:01 | Emergency (ER) | payer BC, OTHER ==
--- NOTE | 2020-08-22 23:14 | RAD ---
Exam: Chest one view HISTORY:Fever. Evaluate for pneumonia. COVID positive patient, 7 days ago Comparison: 02/03/2019 FINDINGS: Cardiac silhouette:Upper normal cardiac silhouette Aorta: Atherosclerosis Pulmonary vessels: Normal Costophrenic angles: Clear LUNGS: Predominantly patchy interstitial opacities in the right lung. Patchy interstitial and alveola r opacities in the left lung. Pneumothorax: None Osseous abnormalities: None IMPRESSION: Multifocal opacities as described above. Correlate for multi lobar COVID pneumonia.
== END 2020-08-22 23:50 ==
LOC: ERS 22:01
DX: U07.1 COVID-19 (principal); E03.9 Hypothyroidism, unspecified; I10 Essential (primary) hypertension
CPT/HCPCS: 71045